=== PATIENT | female | born 1955 | race Caucasian/White ===

== ENCOUNTER 2022-11-15 10:02 | Inpatient (IN) | payer MEDICARE, OTHER ==
[2022-11-15] MEDS ORDERED: Sodium Chloride 0.9% 1000 ML 1,000 ML IV STA (10:16)
[2022-11-15] MEDS ORDERED: VANCOMYCIN 1 GRAM/200 ML BAG 1 GM/200 ML PIGGYBACK IV ONE ×2 (10:22→11:46)
[2022-11-15] MEDS ORDERED: ROCEPHIN 1 Gm-D5w 50 ml Bag** 1 G/50 ML IVPB IV STA (10:22)
[2022-11-15] MEDS ORDERED: Hydromorphone 1 mg/ml Injection IV ONE (10:32)
[2022-11-15] MEDS ORDERED: Zofran 4 MG/2 ML VIAL ONE (10:33)
[2022-11-15] MEDS ORDERED: Zofran 4 MG/2 ML VIAL IV ONE (10:33)
[2022-11-15] MEDS ORDERED: Hydromorphone 1 mg/ml Injection ONE (10:34)
[2022-11-15] MEDS ORDERED: Sodium Chloride 0.9% 1000 ML 1,000 ML ONE (10:36)
[2022-11-15] MEDS ORDERED: ROCEPHIN 1 Gm-D5w 50 ml Bag** 1 G/50 ML IVPB IV ONE (10:36)
[2022-11-15 10:50] LABS: Absolute Neutrophil Ct (ANC) 25.72 x10^3/uL (1.4-6.9); Eosinophil (Absolute #) 0.01 x10^3/uL (0-0.5); Hematocrit 32.4 % (35-47); Hemoglobin 11.3 g/dL (12.0-16.0); Lymphocyte (Absolute #) 1.99 x10^3/uL (1.0-4.6); Lymphocytes % 6.6 % (24.0-44.0); Mean Cell Volume 86.4 fL (78-100); Mean Corpuscular Hemoglobin 30.1 pg (26-32); Mean Corpuscular Hgb Concent. 34.9 g/dL (32-36); Mean Platelet Volume 10.6 fL (7.5-11.0); Monocyte (Absolute #) 1.82 x10^3/uL (0.0-1.3); Neutrophil % 85.4 % (36.0-66.0); Platelet Count 137 x10^3/uL (150-450); Red Blood Count 3.75 x10^6/uL (4.1-5.4); Red Cell Distribution Width 14.8 % (11.5-14.0)
[2022-11-15 10:51] LABS: White Blood Count 30.1 x10^3/uL (4.0-10.5)
[2022-11-15 10:57] LABS: ALBUMIN 3.8 g/dL (3.5-5.0); ALKALINE PHOSPHATASE 133 U/L (38-126); ANION GAP 15.6 MEQ/L (5-15); BLOOD UREA NITROGEN 25 mg/dL (7-17); CHLORIDE 85 mmol/L (98-107); Calcium 9.6 mg/dL (8.4-10.2); Carbon Dioxide 26 mmol/L (22-30); Creatinine 1 0.81 mg/dL (0.52-1.04); EST GLOMERULAR FILTRATION RATE > 60.0 ML/MIN; Glucose 433 mg/dL (74-106); Potassium 3.4 mmol/L (3.5-5.1); SGOT/AST 25 U/L (14-36); SGPT/ALT 35 U/L (0-35); SODIUM 124 mmol/L (137-145); Total Protein 7.5 g/dL (6.3-8.2)
[2022-11-15 11:19] LABS: INFLUENZA A NEGATIVE (NEGATIVE); INFLUENZA B NEGATIVE (NEGATIVE); RESPIRATORY SYNCTIAL VIRUS NEGATIVE (Negative); SARS-CoV-2 Xpert Express NEGATIVE (NEGATIVE)
[2022-11-15 11:23] LABS: Lymphocytes 10 % (24-44); Monocyte 5 % (0.0-12.0); Platelet Estimate DECREASED (NORMAL); Total Cells Counted 100
--- NOTE | 2022-11-15 11:32 | XRAY ---
Indication: Pain, swelling, and erythema. Two-dimensional sonogram and color Doppler imaging of the major venous vessels of the left upper extremity performed. Comparison: None No thrombus seen in the visualized left jugular, subclavian, axillary, basilic, brachial, cephalic, median cubital, radial, and ulnar veins. Veins demonstrate normal compressibility and normal venous waveforms. Impression: Left upper extremity negative for venous thrombosis.
--- NOTE | 2022-11-15 12:07 | ERPHSYRPT ---
- History of Present Illness Time Seen by Provider: 11/15/22 10:20 Source: patient Exam Limitations: no limitations Patient Subjective Stated Complaint: Pt states "I have had a double masectomy and they took allot of lymph nodes out of my left arm and on monday I started to have a sore throat and my left arm started to hurt and swell." Triage Nursing Assessment: Left arm swollen, hot, red and tender. PT alert and oriented X 3, skin pwd. Pt ambulates with an upright steady gait, able to speak in clear full sentences. Pt in no apaprent respiratory distress. Physician History: Patient is a 67-year-old white female who presents with a complaint of left arm pain. She reports that she had in 2013 a bilateral mastectomy with extensive node exploration on the left. Swelling is not terribly unusual. 4 days ago she noticed a sore throat and started with pain in her left upper extremity. Since then she has progressed to swelling heat and tenderness in the left upper extremity and areas of erythema on the posterior aspect of the upper arm. She is diabetic. Occurred: days ago (4) Quality: aching, burning, throbbing Severity of Pain-Max: severe Severity of Pain-Current: moderate Extremities Pain Location: arm: left, elbow: left, forearm: left, wrist: left, hand: left (Swelling tenderness and heat with some erythema in the posterior aspect of the upper arm) Allergies/Adverse Reactions: No Known Drug Allergies Allergy (Verified 11/15/22 10:18) Home Medications: Glimepiride 4 mg [Amaryl 4 mg] 4 mg PO DAILY 11/15/22 [History] Hydrochlorothiazide 25 mg [hydroDIURIL 25 MG] 25 mg PO DAILY 11/15/22 [History] Metformin HCl [Metformin ER Gastric] 1,000 mg PO DAILY 11/15/22 [History] Valsartan 160 mg PO DAILY 11/15/22 [History] Hx Tetanus, Diphtheria Vaccination/Date Given: No Hx Influenza Vaccination/Date Given: Yes Hx Pneumococcal Vaccination/Date Given: Yes Immunizations Up to Date: Yes Travel Risk - International Travel Have you traveled outside of the country in past 3 weeks: No - Coronavirus Screening Are you exhibiting any of the following symptoms?: No Close contact with a COVID-19 positive Pt in past 14-21 Days: No - Vaccine Status Have you recieved a Covid-19 vaccination: Yes Food [employer]: Moderna - Vaccination Dates Date of 2cond Vaccination (if applicable): 2020 - Review of Systems Constitutional: No Fever, No Chills Eyes: No Symptoms Ears, Nose, & Throat: No Symptoms Respiratory: No Cough, No Dyspnea Cardiac: No Chest Pain, No Edema, No Syncope Abdominal/Gastrointestinal: No Abdominal Pain, No Nausea, No Vomiting, No Diarrhea Genitourinary Symptoms: No Dysuria Musculoskeletal: Other (Left upper extremity is remarkable for edema the entire limb is hot to the touch there is erythema on the posterior aspect of the upper arm and movement is very painful.), No Back Pain, No Neck Pain Skin: No Rash Neurological: No Dizziness, No Focal Weakness, No Sensory Changes Psychological: No Symptoms Endocrine: No Symptoms All Other Systems: Reviewed and Negative - Past Medical History Pertinent Past Medical History: Yes Neurological History: No Pertinent History ENT History: No Pertinent History Cardiac History: Hypertension Respiratory History: No Pertinent History Endocrine Medical History: Diabetes Type II Musculoskeletal History: No Pertinent History GI Medical History: No Pertinent History History: No Pertinent History Psycho-Social History: No Pertinent History Female Reproductive Disorders: Breast Cancer - Past Surgical History Past Surgical History: Yes Other Surgical History: double masectomy. 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 - Social History Smoking Status: Never smoker Exposure to second hand smoke: No Drug Use: none Patient Lives Alone: No - Nursing Vital Signs Nursing Vital Signs: Initial Vital Signs Temperature 97.1 F 11/15/22 10:07 Pulse Rate 104 H 11/15/22 10:07 Respiratory Rate 20 11/15/22 10:07 Blood Pressure 152/70 11/15/22 10:07 O2 Sat by Pulse Oximetry 99 11/15/22 10:07 Pain Scale Pain Intensity 8 - Physical Exam General Appearance: moderate distress Eyes, Ears, Nose, Throat Exam: pharyngeal erythema Neck Exam: non-tender, supple Cardiovascular/Respiratory Exam: chest non-tender, normal breath sounds, regular rate/rhythm, no respiratory distress Abdominal Exam: non-tender, No guarding Back Exam: normal inspection, No vertebral tenderness Elbow/Forearm Exam: limited ROM, pain, soft tissue tenderness, swelling Skin Exam: rash (Erythematous rash posterior aspect of the left upper extremity) SpO2 Interpretation: normal SpO2: 97 O2 Delivery: Room Air - Course Nursing assessment & vital signs reviewed: Yes - Radiology Ultrasound Exam Left Venous Upper Extremity Ultrasound: Other (Ultrasound of the upper extremity showed no thrombus no discrete abscess only edema.) Ordered Tests: Active Orders 24 hr Category Date Time Status IV Insertion STAT Care 11/15/22 10:16 Active VENOUS UNILAT/LIMITED EXTREMIT [US] Stat Exams 11/15/22 10:20 Completed BLOOD CULTURE Stat Lab 11/15/22 10:35 Received CBC W DIFF Stat Lab 11/15/22 10:21 Results CMP Stat Lab 11/15/22 10:35 Completed Lactic Acid Stat Lab 11/15/22 10:35 Completed Manual Differential NC Stat Lab 11/15/22 10:21 Results Pathologist Review Stat Lab 11/15/22 10:21 Results SED RATE [Erythrocyte Sedimentation Rate] Stat Lab 11/15/22 10:21 Completed UA W/RFX CULTURE Stat Lab 11/15/22 Ordered Uric Acid Stat Lab 11/15/22 10:35 Completed Medication Summary Discontinued Medications Generic Name Dose Route Start Last Admin Trade Name Freq PRN Reason Stop Dose Admin Hydromorphone HCl 0.5 mg 11/15/22 10:32 11/15/22 10:35 Hydromorphone 1 Mg/1ml Inj 1 Mg/Ml Syringe IV 11/15/22 10:33 0.5 mg STAT ONE Administration Hydromorphone HCl Confirm 11/15/22 10:34 Hydromorphone 1 Mg/1ml Inj 1 Mg/Ml Syringe Administered 11/15/22 10:35 Dose 1 mg .ROUTE .STK-MED ONE Ceftriaxone Sodium/Dextrose 1 g in 50 mls @ 100 mls/hr 11/15/22 10:22 11:47 Rocephin 1 Gm-D5w 50 Ml Bag IV 11/15/22 10:51 Infused STAT STA Infusion Vancomycin HCl 1 gm in 200 mls @ 125 mls/hr 11/15/22 10:22 11/15/22 11:46 Vancomycin 1 Gram/200 Ml Bag IV 11/15/22 11:57 125 mls/hr STAT ONE 125 mls/hr Administration Sodium Chloride 1,000 mls @ 999 mls/hr 11/15/22 10:16 11/15/22 11:47 Sodium Chloride 0.9% 1000 Ml IV 11/15/22 11:16 Infused .Q1H1M STA Infusion Sodium Chloride Confirm 11/15/22 10:36 Sodium Chloride 0.9% 1000 Ml Administered 11/15/22 10:37 Dose 1,000 mls @ ud .ROUTE .K-MED ONE Ceftriaxone Sodium/Dextrose Confirm 11/15/22 10:36 Rocephin 1 Gm-D5w 50 Ml Bag Administered 11/15/22 10:37 Dose 1 g in 50 mls @ ud IV .STK-MED ONE Vancomycin HCl Confirm 11/15/22 11:46 Vancomycin 1 Gram/200 Ml Bag Administered 11/15/22 11:47 Dose 1 gm in 200 mls @ ud IV .STK-MED ONE Ondansetron HCl 4 mg 11/15/22 10:33 11/15/22 10:34 Ondansetron Hcl 4 Mg/2 Ml Vial IV 11/15/22 10:34 4 mg STAT ONE Administration Ondansetron HCl Confirm 11/15/22 10:33 Ondansetron Hcl 4 Mg/2 Ml Vial Administered 11/15/22 10:34 Dose 4 mg .ROUTE .[facility] ONE Lab/Rad Data: Laboratory Result Diagrams 11/15/22 10:21 11/15/22 10:35 Laboratory Results 11/15/22 11/15/22 11/15/22 Range/Units 10:39 10:39 10:35 WBC (4.0-10.5) x10^3/uL RBC (4.1-5.4) x10^6/uL Hgb (12.0-16.0) g/dL Hct (35-47) % MCV (78-100) fL MCH (26-32) pg MCHC (32-36) g/dL RDW (11.5-14.0) % Plt Count (150-450) x10^3/uL MPV (7.5-11.0) fL Gran % (36.0-66.0) % Immature Gran % (Auto) (0.00-0.4) % Nucleat RBC Rel Count (0.00-0.1) % Eos # (Auto) (0-0.5) x10^3/uL Immature Gran # (Auto) (0.00-0.03) x10^3u/L Absolute Lymphs (auto) (1.0-4.6) x10^3/uL Absolute Monos (auto) (0.0-1.3) x10^3/uL Absolute Nucleated RBC (0.00-0.01) x10^3u/L Lymphocytes % (24.0-44.0) % Monocytes % (0.0-12.0) % Eosinophils % (0.00-5.0) % Basophils % (0.0-0.4) % Absolute Granulocytes (1.4-6.9) x10^3/uL Segmented Neutrophils (36.0-66.0) % Lymphocytes (Manual) (24-44) % Monocytes (Manual) (0.0-12.0) % Basophils # (0-0.4) x10^3/uL Platelet Estimate (NORMAL) RBC Morphology Smear Path Review ESR (0-20) mm/hr Sodium (137-145) mmol/L Potassium (3.5-5.1) mmol/L Chloride (98-107) mmol/L Carbon Dioxide (22-30) mmol/L Anion Gap (5-15) MEQ/L BUN (7-17) mg/dL Creatinine (0.52-1.04) mg/dL Estimated GFR ML/MIN Glucose (74-106) mg/dL Lactic Acid (0.4-2.0) Uric Acid 7.0 H (2.6-6.0) mg/dL Calcium (8.4-10.2) mg/dL Total Bilirubin (0.2-1.3) mg/dL AST (14-36) U/L ALT (0-35) U/L Alkaline Phosphatase (38-126) U/L Serum Total Protein (6.3-8.2) g/dL Albumin (3.5-5.0) g/dL Influenza Type A Ag NEGATIVE (NEGATIVE) Influenza Type B Ag NEGATIVE (NEGATIVE) RSV (PCR) NEGATIVE (Negative) SARS-CoV-2 (PCR) NEGATIVE (NEGATIVE) Group A Strep Antibody DETECTED (NEGATIVE) 11/15/22 11/15/22 11/15/22 Range/Units 10:35 10:35 10:21 WBC (4.0-10.5) x10^3/uL RBC (4.1-5.4) x10^6/uL Hgb (12.0-16.0) g/dL Hct (35-47) % MCV (78-100) fL MCH (26-32) pg MCHC (32-36) g/dL RDW (11.5-14.0) % Plt Count (150-450) x10^3/uL MPV (7.5-11.0) fL Gran % (36.0-66.0) % Immature Gran % (Auto) (0.00-0.4) % Nucleat RBC Rel Count (0.00-0.1) % Eos # (Auto) (0-0.5) x10^3/uL Immature Gran # (Auto) (0.00-0.03) x10^3u/L Absolute Lymphs (auto) (1.0-4.6) x10^3/uL Absolute Monos (auto) (0.0-1.3) x10^3/uL Absolute Nucleated RBC (0.00-0.01) x10^3u/L Lymphocytes % (24.0-44.0) % Monocytes % (0.0-12.0) % Eosinophils % (0.00-5.0) % Basophils % (0.0-0.4) % Absolute Granulocytes (1.4-6.9) x10^3/uL Segmented Neutrophils (36.0-66.0) % Lymphocytes (Manual) (24-44) % Monocytes (Manual) (0.0-12.0) % Basophils # (0-0.4) x10^3/uL Platelet Estimate (NORMAL) RBC Morphology Smear Path Review ESR 76 H (0-20) mm/hr Sodium 124 L (137-145) mmol/L Potassium 3.4 L (3.5-5.1) mmol/L Chloride 85 L (98-107) mmol/L Carbon Dioxide 26 (22-30) mmol/L Anion Gap 15.6 H (5-15) MEQ/L BUN 25 H (7-17) mg/dL Creatinine 0.81 (0.52-1.04) mg/dL Estimated GFR > 60.0 ML/MIN Glucose 433 H (74-106) mg/dL Lactic Acid 2.5 H (0.4-2.0) Uric Acid (2.6-6.0) mg/dL Calcium 9.6 (8.4-10.2) mg/dL Total Bilirubin 2.00 H (0.2-1.3) mg/dL AST 25 (14-36) U/L ALT 35 (0-35) U/L Alkaline Phosphatase 133 H (38-126) U/L Serum Total Protein 7.5 (6.3-8.2) g/dL Albumin 3.8 (3.5-5.0) g/dL Influenza Type A Ag (NEGATIVE) Influenza Type B Ag (NEGATIVE) RSV (PCR) (Negative) SARS-CoV-2 (PCR) (NEGATIVE) Group A Strep Antibody (NEGATIVE) 11/15/22 Range/Units 10:21 WBC 30.1 H* (4.0-10.5) x10^3/uL RBC 3.75 L (4.1-5.4) x10^6/uL Hgb 11.3 L (12.0-16.0) g/dL Hct 32.4 L (35-47) % MCV 86.4 (78-100) fL MCH 30.1 (26-32) pg MCHC 34.9 (32-36) g/dL RDW 14.8 H (11.5-14.0) % Plt Count 137 L (150-450) x10^3/uL MPV 10.6 (7.5-11.0) fL Gran % 85.4 H (36.0-66.0) % Immature Gran % (Auto) 1.7 H (0.00-0.4) % Nucleat RBC Rel Count 0.0 (0.00-0.1) % Eos # (Auto) 0.01 (0-0.5) x10^3/uL Immature Gran # (Auto) 0.50 H (0.00-0.03) x10^3u/L Absolute Lymphs (auto) 1.99 (1.0-4.6) x10^3/uL Absolute Monos (auto) 1.82 H (0.0-1.3) x10^3/uL Absolute Nucleated RBC 0.00 (0.00-0.01) x10^3u/L Lymphocytes % 6.6 L (24.0-44.0) % Monocytes % 6.0 (0.0-12.0) % Eosinophils % 0.0 (0.00-5.0) % Basophils % 0.3 (0.0-0.4) % Absolute Granulocytes 25.72 H (1.4-6.9) x10^3/uL Segmented Neutrophils 85 H (36.0-66.0) % Lymphocytes (Manual) 10 L (24-44) % Monocytes (Manual) 5 (0.0-12.0) % Basophils # 0.10 (0-0.4) x10^3/uL Platelet Estimate DECREASED (NORMAL) RBC Morphology NORMAL Smear Path Review Pending ESR (0-20) mm/hr Sodium (137-145) mmol/L Potassium (3.5-5.1) mmol/L Chloride (98-107) mmol/L Carbon Dioxide (22-30) mmol/L Anion Gap (5-15) MEQ/L BUN (7-17) mg/dL Creatinine (0.52-1.04) mg/dL Estimated GFR ML/MIN Glucose (74-106) mg/dL Lactic Acid (0.4-2.0) Uric Acid (2.6-6.0) mg/dL Calcium (8.4-10.2) mg/dL Total Bilirubin (0.2-1.3) mg/dL AST (14-36) U/L ALT (0-35) U/L Alkaline Phosphatase (38-126) U/L Serum Total Protein (6.3-8.2) g/dL Albumin (3.5-5.0) g/dL Influenza Type A Ag (NEGATIVE) Influenza Type B Ag (NEGATIVE) RSV (PCR) (Negative) SARS-CoV-2 (PCR) (NEGATIVE) Group A Strep Antibody (NEGATIVE) - Progress Progress: unchanged Discussed with .: José Antonio Will see patient in: hospital (observation) - Departure Departure Disposition: Observation Clinical Impression: Strep pharyngitis, Cellulitis of left upper extremity Condition: Fair Critical Care Time: No Referrals: DAPHNE GUERRA [Primary Care Provider] - Follow up/PCP as directed
[2022-11-15] MEDS ORDERED: Sodium Chloride 0.9% 1000 ML 1,000 ML IV SCH (12:15)
[2022-11-15] MEDS ORDERED: VANCOCIN INJECTION*** 1 GM in Sodium Chloride 0.9% 250 ML 250 ML IV SCH (12:30)
[2022-11-15] MEDS: HUMALOG SQ PRN ×3 (13:23→21:51)
[2022-11-15] MEDS ORDERED: Zofran 4 MG/2 ML VIAL IV PRN (13:50)
[2022-11-15] MEDS: Sodium Chloride 0.9% W/ 20 mEq KCl/LITER 1,000 ML IV SCH (14:21)
[2022-11-15] MEDS: Hydromorphone 1 mg/ml Injection IV PRN (14:21)
[2022-11-15] MEDS: PERCOCET TABLET 5/325MG PO PRN ×2 (15:48→21:19)
[2022-11-15] MEDS: DIOVAN 80 MG PO SCH (21:19)
[2022-11-15] MEDS: VANCOMYCIN 1 GRAM/200 ML BAG 1 GM/200 ML PIGGYBACK IV SCH (21:27)
[2022-11-15 23:00] LABS: Mucus SLIGHT /HPF (NEGATIVE)
[2022-11-15 23:01] LABS: Appearance CLEAR (CLEAR); Bilirubin NEGATIVE (NEGATIVE); Dipstick done @ ? MAIN LAB; Glucose 250 mg/dL (NEGATIVE); Ketones NEGATIVE (NEGATIVE); Nitrite NEGATIVE (NEGATIVE); Protein,Urine Dip 100 (Negative); RBC TRACE-INTACT Ery/ul (0-5); Specific Gravity 1.015 (1.005-1.025); Urine Cultured Indicated? YES; Urobilinogen 0.2 mg/dL (0-1)
[2022-11-16] MEDS: Sodium Chloride 0.9% W/ 20 mEq KCl/LITER 1,000 ML IV SCH ×3 (00:43→22:13)
[2022-11-16 05:35] LABS: Absolute Neutrophil Ct (ANC) 20.11 x10^3/uL (1.4-6.9); Basophil (Absolute #) 0.05 x10^3/uL (0-0.4); Eosinophil % 0.1 % (0.00-5.0); Eosinophil (Absolute #) 0.03 x10^3/uL (0-0.5); Hematocrit 27.6 % (35-47); Hemoglobin 9.7 g/dL (12.0-16.0); Lymphocyte (Absolute #) 1.81 x10^3/uL (1.0-4.6); Lymphocytes % 7.6 % (24.0-44.0); Mean Cell Volume 86.8 fL (78-100); Mean Corpuscular Hemoglobin 30.5 pg (26-32); Mean Corpuscular Hgb Concent. 35.1 g/dL (32-36); Mean Platelet Volume 10.9 fL (7.5-11.0); Monocyte (Absolute #) 1.22 x10^3/uL (0.0-1.3); Monocytes % 5.1 % (0.0-12.0); Neutrophil % 84.8 % (36.0-66.0); Platelet Count 126 x10^3/uL (150-450); Red Blood Count 3.18 x10^6/uL (4.1-5.4); Red Cell Distribution Width 14.9 % (11.5-14.0); White Blood Count 23.7 x10^3/uL (4.0-10.5)
[2022-11-16 06:42] LABS: ALBUMIN 2.6 g/dL (3.5-5.0); ALKALINE PHOSPHATASE 97 U/L (38-126); ANION GAP 11.5 MEQ/L (5-15); BLOOD UREA NITROGEN 23 mg/dL (7-17); CHLORIDE 95 mmol/L (98-107); Calcium 8.3 mg/dL (8.4-10.2); Carbon Dioxide 25 mmol/L (22-30); Creatinine 1 0.75 mg/dL (0.52-1.04); EST GLOMERULAR FILTRATION RATE > 60.0 ML/MIN; Glucose 251 mg/dL (74-106); Potassium 3.5 mmol/L (3.5-5.1); SGOT/AST 23 U/L (14-36); SGPT/ALT 26 U/L (0-35); SODIUM 128 mmol/L (137-145); Total Protein 5.5 g/dL (6.3-8.2)
[2022-11-16] MEDS: HUMALOG SQ PRN ×4 (07:47→22:14)
[2022-11-16] MEDS: Hydromorphone 1 mg/ml Injection IV PRN (07:52)
[2022-11-16] MEDS: PERCOCET TABLET 5/325MG PO PRN (09:56)
[2022-11-16] MEDS: hydroDIURIL 25 MG PO SCH (09:56)
[2022-11-16] MEDS: ROCEPHIN 1 Gm-D5w 50 ml Bag** 1 G/50 ML IVPB IV SCH (09:56)
[2022-11-16] MEDS: VANCOMYCIN 1 GRAM/200 ML BAG 1 GM/200 ML PIGGYBACK IV SCH (10:26)
--- NOTE | 2022-11-16 11:44 | PCM.HP ---
History of Present Illness - Chief Complaint Chief Complaint: CELLULITIS LUE, STREP PHARYNGITIS History of Present Illness: is a 67 year old female pt of [facility] in [place] with hx DM II who was admitted through ER with Strep pharyngitis and cellulitis LUE. WBC 30,000. She started having sore throat 4d ago, took 2 asa and went to bed. Had some stomach pain. Throat pain localized on the R, then resolved. She started having arm pain 4d ago as well and woke the next day to find it swollen. Denies fever. Has had vomiting and diarrhea with it. WBC down to 23,000 this morning and she said the arm feels somewhat better. - Review of Systems Abdominal/Gastrointestinal: Abdominal Pain, Vomiting, Diarrhea, Melena (c/o black stools, "I eat a lot of dark chocolate." never had EGD/colonoscopy. Has cologard but hasn't done it.) Musculoskeletal: Arthralgias Skin: Cellulitis All Other Systems: Reviewed and Negative Medications & Allergies Home Medications: Home Medication List Glimepiride 4 mg [Amaryl 4 mg] 4 mg PO DAILY 11/15/22 [History Confirmed 11/15/22] Hydrochlorothiazide 25 mg [hydroDIURIL 25 MG] 25 mg PO DAILY 11/15/22 [History Confirmed 11/15/22] Metformin HCl [Metformin ER Gastric] 1,000 mg PO BID 11/15/22 [History Confirmed 11/15/22] Valsartan 160 mg PO HS 11/15/22 [History Confirmed 11/15/22] Allergies/Adverse Reactions: Allergies Allergy/AdvReac Type Severity Reaction Status Date / Time No Known Drug Allergies Allergy Verified 11/15/22 10:18 - Past Medical History Past Medical History: Yes Neurological History: No Pertinent History ENT History: No Pertinent History Cardiac History: Hypertension Respiratory History: No Pertinent History Endocrine Medical History: Diabetes Type II Musculoskelatal History: No Pertinent History GI Medical History: No Pertinent History History: No Pertinent History Pyscho-Social History: No Pertinent History Reproductive Disorders: Breast Cancer - Past Surgical History Past Surgical History: Yes Neuro Surgical History: No Pertinent History Cardiac History: No Pertinent History Respiratory Surgery: No Pertinent History GI Surgical History: No Pertinent History Genitourinary Surgical Hx: No Pertinent History Musculskeletal Surgical Hx: No Pertinent History Female Surgical History: No Pertinent History Other Surgical History: double masectomy. 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 - Social History Smoking Status: Never smoker Exposure to second hand smoke: No Alcohol: None Drug Use: none - Physical Exam Vital Signs: Vital Signs - 24 hr Temp Pulse Resp BP Pulse Ox 11/16/22 07:39 96.9 F 93 H 17 127/59 92 L 11/16/22 04:00 97.9 F 76 18 130/61 94 L 11/15/22 23:49 97.2 F 93 H 18 108/54 93 L 11/15/22 20:00 97.5 F 88 18 113/55 93 L 11/15/22 16:00 97.7 F 96 H 14 103/51 94 L 11/15/22 13:04 97.1 F 90 16 151/65 97 11/15/22 12:12 97 11/15/22 12:06 89 20 139/58 98 11/15/22 11:50 90 20 147/58 97 General Appearance: mild distress (when moving the arm), alert Neurologic Exam: oriented x 3, cooperative Eye Exam: eyes nml inspection Ears, Nose, Throat Exam: moist mucous membranes Neck Exam: normal inspection Respiratory Exam: normal breath sounds, lungs clear, No crackles/rales, No rhonchi, No wheezing Cardiovascular Exam: regular rate/rhythm, normal heart sounds, No murmur Gastrointestinal/Abdomen Exam: soft, normal bowel sounds, No tenderness, No distention, No mass, No guarding, No rebound Extremity Exam: other (LUE edema mid-humerus to distal forearm, with moderate erythema and marked edema. tender to palp, but not exquisitely so.) Results - Labs Lab/Micro Results: Lab Results-Last 24 Hours 11/15/22 11/15/22 11/15/22 Range/Units 05:20 10:21 13:02 WBC (4.0-10.5) x10^3/uL RBC (4.1-5.4) x10^6/uL Hgb (12.0-16.0) g/dL Hct (35-47) % MCV (78-100) fL MCH (26-32) pg MCHC (32-36) g/dL RDW (11.5-14.0) % Plt Count (150-450) x10^3/uL MPV (7.5-11.0) fL Gran % (36.0-66.0) % Immature Gran % (Auto) (0.00-0.4) % Nucleat RBC Rel Count (0.00-0.1) % Eos # (Auto) (0-0.5) x10^3/uL Immature Gran # (Auto) (0.00-0.03) x10^3u/L Absolute Lymphs (auto) (1.0-4.6) x10^3/uL Absolute Monos (auto) (0.0-1.3) x10^3/uL Absolute Nucleated RBC (0.00-0.01) x10^3u/L Lymphocytes % (24.0-44.0) % Monocytes % (0.0-12.0) % Eosinophils % (0.00-5.0) % Basophils % (0.0-0.4) % Absolute Granulocytes (1.4-6.9) x10^3/uL Basophils # (0-0.4) x10^3/uL Smear Path Review Sodium (137-145) mmol/L Potassium (3.5-5.1) mmol/L Chloride (98-107) mmol/L Carbon Dioxide (22-30) mmol/L Anion Gap (5-15) MEQ/L BUN (7-17) mg/dL Creatinine (0.52-1.04) mg/dL Estimated GFR ML/MIN Glucose (74-106) mg/dL POC Glucometer 366 H (74 to 106) mg/dL Hemoglobin A1c 10.22 H (4.5-6.0) % Lactic Acid (0.4-2.0) Calcium (8.4-10.2) mg/dL Total Bilirubin (0.2-1.3) mg/dL AST (14-36) U/L ALT (0-35) U/L Alkaline Phosphatase (38-126) U/L Serum Total Protein (6.3-8.2) g/dL Albumin (3.5-5.0) g/dL Urinalys Dipstick Clnc Urine Color (YELLOW) Urine Appearance (CLEAR) Urine pH (5-6) Ur Specific Channing (1.005-1.025) POC Urine Protein Conf (Negative) Urine Ketones (NEGATIVE) Urine Nitrite (NEGATIVE) Urine Bilirubin (NEGATIVE) Urine Urobilinogen (0-1) mg/dL Urine Leukocytes (NEGATIVE) Urine WBC (Auto) (0-5) /HPF Urine RBC (Auto) (0-2) /HPF U Epithel Cells (Auto) (FEW) /HPF Urine Bacteria (Auto) (NEGATIVE) /HPF Urine RBC (0-5) Jerman/ul Urine Mucus (Auto) (NEGATIVE) /HPF Ur Culture Indicated? Urine Glucose (NEGATIVE) mg/dL Slides for Path Review 11/15/22 11/15/22 11/15/22 Range/Units 16:27 21:37 22:39 WBC (4.0-10.5) x10^3/uL RBC (4.1-5.4) x10^6/uL Hgb (12.0-16.0) g/dL Hct (35-47) % MCV (78-100) fL MCH (26-32) pg MCHC (32-36) g/dL RDW (11.5-14.0) % Plt Count (150-450) x10^3/uL MPV (7.5-11.0) fL Gran % (36.0-66.0) % Immature Gran % (Auto) (0.00-0.4) % Nucleat RBC Rel Count (0.00-0.1) % Eos # (Auto) (0-0.5) x10^3/uL Immature Gran # (Auto) (0.00-0.03) x10^3u/L Absolute Lymphs (auto) (1.0-4.6) x10^3/uL Absolute Monos (auto) (0.0-1.3) x10^3/uL Absolute Nucleated RBC (0.00-0.01) x10^3u/L Lymphocytes % (24.0-44.0) % Monocytes % (0.0-12.0) % Eosinophils % (0.00-5.0) % Basophils % (0.0-0.4) % Absolute Granulocytes (1.4-6.9) x10^3/uL Basophils # (0-0.4) x10^3/uL Smear Path Review Sodium (137-145) mmol/L Potassium (3.5-5.1) mmol/L Chloride (98-107) mmol/L Carbon Dioxide (22-30) mmol/L Anion Gap (5-15) MEQ/L BUN (7-17) mg/dL Creatinine (0.52-1.04) mg/dL Estimated GFR ML/MIN Glucose (74-106) mg/dL POC Glucometer 261 H 270 H (74 to 106) mg/dL Hemoglobin A1c (4.5-6.0) % Lactic Acid (0.4-2.0) Calcium (8.4-10.2) mg/dL Total Bilirubin (0.2-1.3) mg/dL AST (14-36) U/L ALT (0-35) U/L Alkaline Phosphatase (38-126) U/L Serum Total Protein (6.3-8.2) g/dL Albumin (3.5-5.0) g/dL Urinalys Dipstick Clnc MAIN LAB Urine Color YELLOW (YELLOW) Urine Appearance CLEAR (CLEAR) Urine pH 5.0 (5-6) Ur Specific Channing 1.015 (1.005-1.025) POC Urine Protein Conf 100 A (Negative) Urine Ketones NEGATIVE (NEGATIVE) Urine Nitrite NEGATIVE (NEGATIVE) Urine Bilirubin NEGATIVE (NEGATIVE) Urine Urobilinogen 0.2 (0-1) mg/dL Urine Leukocytes TRACE A (NEGATIVE) Urine WBC (Auto) 16-25 A (0-5) /HPF Urine RBC (Auto) 3-5 A (0-2) /HPF U Epithel Cells (Auto) NONE (FEW) /HPF Urine Bacteria (Auto) NONE (NEGATIVE) /HPF Urine RBC TRACE-INTACT A (0-5) Jerman/ul Urine Mucus (Auto) SLIGHT A (NEGATIVE) /HPF Ur Culture Indicated? YES Urine Glucose 250 A (NEGATIVE) mg/dL Slides for Path Review 11/16/22 11/16/22 11/16/22 Range/Units 05:05 05:05 05:18 WBC 23.7 H (4.0-10.5) x10^3/uL RBC 3.18 L (4.1-5.4) x10^6/uL Hgb 9.7 L (12.0-16.0) g/dL Hct 27.6 L (35-47) % MCV 86.8 (78-100) fL MCH 30.5 (26-32) pg MCHC 35.1 (32-36) g/dL RDW 14.9 H (11.5-14.0) % Plt Count 126 L (150-450) x10^3/uL MPV 10.9 (7.5-11.0) fL Gran % 84.8 H (36.0-66.0) % Immature Gran % (Auto) 2.2 H (0.00-0.4) % Nucleat RBC Rel Count 0.0 (0.00-0.1) % Eos # (Auto) 0.03 (0-0.5) x10^3/uL Immature Gran # (Auto) 0.52 H (0.00-0.03) x10^3u/L Absolute Lymphs (auto) 1.81 (1.0-4.6) x10^3/uL Absolute Monos (auto) 1.22 (0.0-1.3) x10^3/uL Absolute Nucleated RBC 0.00 (0.00-0.01) x10^3u/L Lymphocytes % 7.6 L (24.0-44.0) % Monocytes % 5.1 (0.0-12.0) % Eosinophils % 0.1 (0.00-5.0) % Basophils % 0.2 (0.0-0.4) % Absolute Granulocytes 20.11 H (1.4-6.9) x10^3/uL Basophils # 0.05 (0-0.4) x10^3/uL Smear Path Review Sodium 128 L (137-145) mmol/L Potassium 3.5 (3.5-5.1) mmol/L Chloride 95 L (98-107) mmol/L Carbon Dioxide 25 (22-30) mmol/L Anion Gap 11.5 (5-15) MEQ/L BUN 23 H (7-17) mg/dL Creatinine 0.75 (0.52-1.04) mg/dL Estimated GFR > 60.0 ML/MIN Glucose 251 H (74-106) mg/dL POC Glucometer (74 to 106) mg/dL Hemoglobin A1c (4.5-6.0) % Lactic Acid 1.0 (0.4-2.0) Calcium 8.3 L (8.4-10.2) mg/dL Total Bilirubin 1.00 (0.2-1.3) mg/dL AST 23 (14-36) U/L ALT 26 (0-35) U/L Alkaline Phosphatase 97 (38-126) U/L Serum Total Protein 5.5 L (6.3-8.2) g/dL Albumin 2.6 L (3.5-5.0) g/dL Urinalys Dipstick Clnc Urine Color (YELLOW) Urine Appearance (CLEAR) Urine pH (5-6) Ur Specific Channing (1.005-1.025) POC Urine Protein Conf (Negative) Urine Ketones (NEGATIVE) Urine Nitrite (NEGATIVE) Urine Bilirubin (NEGATIVE) Urine Urobilinogen (0-1) mg/dL Urine Leukocytes (NEGATIVE) Urine WBC (Auto) (0-5) /HPF Urine RBC (Auto) (0-2) /HPF U Epithel Cells (Auto) (FEW) /HPF Urine Bacteria (Auto) (NEGATIVE) /HPF Urine RBC (0-5) Jerman/ul Urine Mucus (Auto) (NEGATIVE) /HPF Ur Culture Indicated? Urine Glucose (NEGATIVE) mg/dL Slides for Path Review ' 11/16/22 Range/Units 07:27 WBC (4.0-10.5) x10^3/uL RBC (4.1-5.4) x10^6/uL Hgb (12.0-16.0) g/dL Hct (35-47) % MCV (78-100) fL MCH (26-32) pg MCHC (32-36) g/dL RDW (11.5-14.0) % Plt Count (150-450) x10^3/uL MPV (7.5-11.0) fL Gran % (36.0-66.0) % Immature Gran % (Auto) (0.00-0.4) % Nucleat RBC Rel Count (0.00-0.1) % Eos # (Auto) (0-0.5) x10^3/uL Immature Gran # (Auto) (0.00-0.03) x10^3u/L Absolute Lymphs (auto) (1.0-4.6) x10^3/uL Absolute Monos (auto) (0.0-1.3) x10^3/uL Absolute Nucleated RBC (0.00-0.01) x10^3u/L Lymphocytes % (24.0-44.0) % Monocytes % (0.0-12.0) % Eosinophils % (0.00-5.0) % Basophils % (0.0-0.4) % Absolute Granulocytes (1.4-6.9) x10^3/uL Basophils # (0-0.4) x10^3/uL Smear Path Review Sodium (137-145) mmol/L Potassium (3.5-5.1) mmol/L Chloride (98-107) mmol/L Carbon Dioxide (22-30) mmol/L Anion Gap (5-15) MEQ/L BUN (7-17) mg/dL Creatinine (0.52-1.04) mg/dL Estimated GFR ML/MIN Glucose (74-106) mg/dL POC Glucometer 281 H (74 to 106) mg/dL Hemoglobin A1c (4.5-6.0) % Lactic Acid (0.4-2.0) Calcium (8.4-10.2) mg/dL Total Bilirubin (0.2-1.3) mg/dL AST (14-36) U/L ALT (0-35) U/L Alkaline Phosphatase (38-126) U/L Serum Total Protein (6.3-8.2) g/dL Albumin (3.5-5.0) g/dL Urinalys Dipstick Clnc Urine Color (YELLOW) Urine Appearance (CLEAR) Urine pH (5-6) Ur Specific Channing (1.005-1.025) POC Urine Protein Conf (Negative) Urine Ketones (NEGATIVE) Urine Nitrite (NEGATIVE) Urine Bilirubin (NEGATIVE) Urine Urobilinogen (0-1) mg/dL Urine Leukocytes (NEGATIVE) Urine WBC (Auto) (0-5) /HPF Urine RBC (Auto) (0-2) /HPF U Epithel Cells (Auto) (FEW) /HPF Urine Bacteria (Auto) (NEGATIVE) /HPF Urine RBC (0-5) Jerman/ul Urine Mucus (Auto) (NEGATIVE) /HPF Ur Culture Indicated? Urine Glucose (NEGATIVE) mg/dL Slides for Path Review Accuchecks Date 11/16/22 Date 11/15/22 Time 07:28 Time 16:48 - Radiology Impressions Radiology Exams & Impressions: Radiology Procedures Category Date Time Status VENOUS UNILAT/LIMITED EXTREMIT [US] Stat Exams 11/15/22 10:20 Completed Assessment/Plan (1) Cellulitis of left upper extremity Current Visit: Yes Status: Acute Assessment & Plan: on vancomycin and rocephin day #2 with some improvement. Will likely take several days of IV antibiotics to improve to the point that she can go home on Po antibiotics. Code(s): L03.114 - CELLULITIS OF LEFT UPPER LIMB (2) Strep pharyngitis Current Visit: Yes Status: Acute Code(s): J02.0 - STREPTOCOCCAL PHARYNGITIS (3) Diabetes type 2, uncontrolled Current Visit: Yes Status: Chronic Qualifiers: Glycemic state: with hyperglycemia Qualified Code(s): E11.65 - Type 2 diabetes mellitus with hyperglycemia Assessment & Plan: start 10 units lantus Code(s): [id number] - (4) Anemia Current Visit: Yes Status: Chronic Qualifiers: Anemia type: unspecified type Qualified Code(s): D64.9 - Anemia, unspecified Assessment & Plan: checking iron studeis and fecal occult blood, particularly in light of report of melena and hx breast ca. Code(s): D64.9 - ANEMIA, UNSPECIFIED (5) Melena Current Visit: Yes Status: Suspected Code(s): K92.1 - MELENA (6) History of breast cancer Current Visit: Yes Status: Acute Code(s): Z85.3 - PERSONAL HISTORY OF MALIGNANT NEOPLASM OF BREAST
[2022-11-16] MEDS: Lantus Insulin SQ SCH (12:39)
[2022-11-16 13:04] LABS: Iron 13 ug/dL (37-170); Iron Saturation 6 % (20-39); TIBC 201 ug/dL (265-462)
[2022-11-16 14:04] LABS: Folate (Folic Acid) 13.1 ng/mL (2.76 - >20)
[2022-11-16 14:11] LABS: Vitamin B12 > 1000 pg/mL (239-931)
[2022-11-16] MEDS: DIOVAN 80 MG PO SCH (22:13)
[2022-11-16] MEDS: VANCOCIN INJECTION*** 0.75 GM in Sodium Chloride 0.9% 250 ML 250 ML IV SCH (22:13)
[2022-11-17] MEDS: HUMALOG SQ PRN ×4 (08:12→22:08)
[2022-11-17] MEDS: Lantus Insulin SQ SCH (08:12)
[2022-11-17 08:30] LABS: Absolute Neutrophil Ct (ANC) 12.88 x10^3/uL (1.4-6.9); Basophil (Absolute #) 0.04 x10^3/uL (0-0.4); Eosinophil (Absolute #) 0.16 x10^3/uL (0-0.5); Hemoglobin 10.5 g/dL (12.0-16.0); Lymphocyte (Absolute #) 1.71 x10^3/uL (1.0-4.6); Lymphocytes % 10.8 % (24.0-44.0); Mean Cell Volume 88.6 fL (78-100); Mean Corpuscular Hgb Concent. 33.9 g/dL (32-36); Mean Platelet Volume 10.6 fL (7.5-11.0); Monocytes % 3.8 % (0.0-12.0); Neutrophil % 81.1 % (36.0-66.0); Platelet Count 133 x10^3/uL (150-450); White Blood Count 15.9 x10^3/uL (4.0-10.5)
[2022-11-17 08:59] LABS: ANION GAP 13.1 MEQ/L (5-15); BLOOD UREA NITROGEN 14 mg/dL (7-17); CHLORIDE 98 mmol/L (98-107); Calcium 8.9 mg/dL (8.4-10.2); Carbon Dioxide 27 mmol/L (22-30); Creatinine 1 0.56 mg/dL (0.52-1.04); EST GLOMERULAR FILTRATION RATE > 60.0 ML/MIN; Glucose 300 mg/dL (74-106); Potassium 3.8 mmol/L (3.5-5.1); SODIUM 134 mmol/L (137-145)
[2022-11-17] MEDS ORDERED: TROUGH DRUG LEVELS IJ ONE (09:30)
--- NOTE | 2022-11-17 09:38 | XRAY ---
Indication: Bibasilar crackles. Comparison: None Portable chest demonstrates subtle left base infiltrate/atelectasis and tiny bibasilar effusions. Heart not enlarged. Bony thorax intact with osteopenia, bilateral mastectomy, and left axilla sandhya dissection.
[2022-11-17] MEDS: ROCEPHIN 1 Gm-D5w 50 ml Bag** 1 G/50 ML IVPB IV SCH (09:45)
[2022-11-17] MEDS: Sodium Chloride 0.9% W/ 20 mEq KCl/LITER 1,000 ML IV SCH ×2 (09:45→20:57)
[2022-11-17] MEDS: hydroDIURIL 25 MG PO SCH (09:46)
--- NOTE | 2022-11-17 12:57 | PCM.NOTE ---
Date and Time: 11/17/22 1253 Subjective Assessment: Tolerating po. Still having pain in arm, 5/10 now, was 10/10 at admission. - Review of Systems Constitutional: No Fever Respiratory: Cough Skin: Cellulitis Objective Exam General Appearance: mild distress (holding the L arm carefully), alert Neurologic Exam: oriented x 3, cooperative Skin Exam: other (LUE with edema particularly medial area of forearm. mild erythema forearma nd distal 1/2 of humerus. TTP) Wound Assessment: Skin/Wound Assessment Wound/Incision Assessment Start: 11/17/22 02:16 Text: Status: Active Freq: Q6H Protocol: Document 11/17/22 08:00 EK (Rec: 11/17/22 09:15 EK [id number]) Wound/Incision Assessment Left Upper Arm Wound Assessment Shift Assessment Wound Type cellulitis Wound Stage Non Pressure Wound Drainage Amount None Surrounding Tissue Bright Red Eye Exam: eyes nml inspection Ears, Nose, Throat Exam: moist mucous membranes Neck Exam: normal inspection Respiratory Exam: normal breath sounds, crackles/rales (bilat bases), No rhonchi, No wheezing Cardiovascular Exam: regular rate/rhythm, normal heart sounds, No murmur Gastrointestinal/Abdomen Exam: soft, normal bowel sounds, No tenderness, No distention, No mass, No guarding, No rebound Extremity Exam: other (see skin exam) Back Exam: normal inspection, No rash OBJECTIVE DATA Vital Signs: Vital Signs - 24 hr Temp Pulse Resp BP Pulse Ox 11/17/22 11:36 96.6 F 81 16 131/70 94 L 11/17/22 08:00 95.9 F 88 16 136/62 92 L 11/17/22 04:00 97.4 F 84 18 135/60 96 11/16/22 23:33 97.5 F 86 18 130/63 96 11/16/22 19:55 97.1 F 95 H 18 132/60 95 11/16/22 16:00 97.6 F 81 16 129/58 92 L Pain Assessment - Last Documented Pain Intensity 2 Pain Scale Used 0-10 Pain Scale Intake and Output: Intake & Output 11/15/22 11/16/22 11/17/22 11/18/22 11:59 11:59 11:59 11:59 Intake Total 3485 4220 Output Total 3800 Balance 3485 420 Weight 62.6 kg 62.1 kg Lab Results: Lab Results-Last 24 Hours 11/16/22 11/16/22 11/16/22 Range/Units 12:30 12:30 12:30 WBC (4.0-10.5) x10^3/uL RBC (4.1-5.4) x10^6/uL Hgb (12.0-16.0) g/dL Hct (35-47) % MCV (78-100) fL MCH (26-32) pg MCHC (32-36) g/dL RDW (11.5-14.0) % Plt Count (150-450) x10^3/uL MPV (7.5-11.0) fL Gran % (36.0-66.0) % Immature Gran % (Auto) (0.00-0.4) % Nucleat RBC Rel Count (0.00-0.1) % Eos # (Auto) (0-0.5) x10^3/uL Immature Gran # (Auto) (0.00-0.03) x10^3u/L Absolute Lymphs (auto) (1.0-4.6) x10^3/uL Absolute Monos (auto) (0.0-1.3) x10^3/uL Absolute Nucleated RBC (0.00-0.01) x10^3u/L Lymphocytes % (24.0-44.0) % Monocytes % (0.0-12.0) % Eosinophils % (0.00-5.0) % Basophils % (0.0-0.4) % Absolute Granulocytes (1.4-6.9) x10^3/uL Basophils # (0-0.4) x10^3/uL Sodium (137-145) mmol/L Potassium (3.5-5.1) mmol/L Chloride (98-107) mmol/L Carbon Dioxide (22-30) mmol/L Anion Gap (5-15) MEQ/L BUN (7-17) mg/dL Creatinine (0.52-1.04) mg/dL Estimated GFR ML/MIN Glucose (74-106) mg/dL POC Glucometer (74 to 106) mg/dL Calcium (8.4-10.2) mg/dL Iron 13 L (37-170) ug/dL TIBC 201 L (265-462) ug/dL Iron Saturation 6 L (20-39) % Ferritin 177 (11.1-264) ng/mL Vitamin B12 > 1000 H (239-931) pg/mL Folic Acid 13.1 (2.76 - >20) ng/mL 11/16/22 11/16/22 11/17/22 Range/Units 16:08 21:45 07:17 WBC (4.0-10.5) x10^3/uL RBC (4.1-5.4) x10^6/uL Hgb (12.0-16.0) g/dL Hct (35-47) % MCV (78-100) fL MCH (26-32) pg MCHC (32-36) g/dL RDW (11.5-14.0) % Plt Count (150-450) x10^3/uL MPV (7.5-11.0) fL Gran % (36.0-66.0) % Immature Gran % (Auto) (0.00-0.4) % Nucleat RBC Rel Count (0.00-0.1) % Eos # (Auto) (0-0.5) x10^3/uL Immature Gran # (Auto) (0.00-0.03) x10^3u/L Absolute Lymphs (auto) (1.0-4.6) x10^3/uL Absolute Monos (auto) (0.0-1.3) x10^3/uL Absolute Nucleated RBC (0.00-0.01) x10^3u/L Lymphocytes % (24.0-44.0) % Monocytes % (0.0-12.0) % Eosinophils % (0.00-5.0) % Basophils % (0.0-0.4) % Absolute Granulocytes (1.4-6.9) x10^3/uL Basophils # (0-0.4) x10^3/uL Sodium (137-145) mmol/L Potassium (3.5-5.1) mmol/L Chloride (98-107) mmol/L Carbon Dioxide (22-30) mmol/L Anion Gap (5-15) MEQ/L BUN (7-17) mg/dL Creatinine (0.52-1.04) mg/dL Estimated GFR ML/MIN Glucose (74-106) mg/dL POC Glucometer 264 H 301 H 284 H (74 to 106) mg/dL Calcium (8.4-10.2) mg/dL Iron (37-170) ug/dL TIBC (265-462) ug/dL Iron Saturation (20-39) % Ferritin (11.1-264) ng/mL Vitamin B12 (239-931) pg/mL Folic Acid (2.76 - >20) ng/mL 11/17/22 11/17/22 11/17/22 Range/Units 08:22 08:22 11:29 WBC 15.9 H (4.0-10.5) x10^3/uL RBC 3.50 L (4.1-5.4) x10^6/uL Hgb 10.5 L (12.0-16.0) g/dL Hct 31.0 L (35-47) % MCV 88.6 (78-100) fL MCH 30.0 (26-32) pg MCHC 33.9 (32-36) g/dL RDW 15.0 H (11.5-14.0) % Plt Count 133 L (150-450) x10^3/uL MPV 10.6 (7.5-11.0) fL Gran % 81.1 H (36.0-66.0) % Immature Gran % (Auto) 3.0 H (0.00-0.4) % Nucleat RBC Rel Count 0.0 (0.00-0.1) % Eos # (Auto) 0.16 (0-0.5) x10^3/uL Immature Gran # (Auto) 0.47 H (0.00-0.03) x10^3u/L Absolute Lymphs (auto) 1.71 (1.0-4.6) x10^3/uL Absolute Monos (auto) 0.60 (0.0-1.3) x10^3/uL Absolute Nucleated RBC 0.00 (0.00-0.01) x10^3u/L Lymphocytes % 10.8 L (24.0-44.0) % Monocytes % 3.8 (0.0-12.0) % Eosinophils % 1.0 (0.00-5.0) % Basophils % 0.3 (0.0-0.4) % Absolute Granulocytes 12.88 H (1.4-6.9) x10^3/uL Basophils # 0.04 (0-0.4) x10^3/uL Sodium 134 L (137-145) mmol/L Potassium 3.8 (3.5-5.1) mmol/L Chloride 98 (98-107) mmol/L Carbon Dioxide 27 (22-30) mmol/L Anion Gap 13.1 (5-15) MEQ/L BUN 14 (7-17) mg/dL Creatinine 0.56 (0.52-1.04) mg/dL Estimated GFR > 60.0 ML/MIN Glucose 300 H (74-106) mg/dL POC Glucometer 322 H (74 to 106) mg/dL Calcium 8.9 (8.4-10.2) mg/dL Iron (37-170) ug/dL TIBC (265-462) ug/dL Iron Saturation (20-39) % Ferritin (11.1-264) ng/mL Vitamin B12 (239-931) pg/mL Folic Acid (2.76 - >20) ng/mL Radiology Exams: Radiology Procedures Category Date Time Status CHEST 1 VIEW (PORTABLE) Urgent Exams 11/17/22 08:53 Completed Multi-Disciplinary Progress Notes: Multi-Disciplinary Progress Notes 11/17/22 10:20 Case Management Note by Mamta Maldonado NO CHANGE IN DC PLANS AT THIS TIME Initialized on 11/17/22 10:20 - END OF NOTE Assessment/Plan (1) Cellulitis of left upper extremity Current Visit: Yes Status: Acute Assessment & Plan: No large improvement. Changing antibiotics as below. Code(s): L03.114 - CELLULITIS OF LEFT UPPER LIMB (2) Bilateral pneumonia Current Visit: Yes Status: Acute Qualifiers: Pneumonia type: due to unspecified organism Assessment & Plan: CXR done after my exam with bilat infiltrates - spoke with pharmacy about my concern in this diabetic pt to cover pseudomonas. Add zosyn and stop rocephin. Keep vancomycin. Code(s): J18.9 - PNEUMONIA, UNSPECIFIED ORGANISM (3) Strep pharyngitis Current Visit: Yes Status: Acute Assessment & Plan: on vanc and zosyn Code(s): J02.0 - STREPTOCOCCAL PHARYNGITIS (4) Diabetes type 2, uncontrolled Current Visit: Yes Status: Chronic Qualifiers: Glycemic state: with hyperglycemia Qualified Code(s): E11.65 - Type 2 diabetes mellitus with hyperglycemia Assessment & Plan: added lantus yesterday Code(s): [id number] - (5) Anemia Current Visit: Yes Status: Chronic Qualifiers: Anemia type: unspecified type Qualified Code(s): D64.9 - Anemia, unspecified Code(s): D64.9 - ANEMIA, UNSPECIFIED (6) Melena Current Visit: Yes Status: Suspected Code(s): K92.1 - MELENA (7) History of breast cancer Current Visit: Yes Status: Chronic Code(s): Z85.3 - PERSONAL HISTORY OF MALIGNANT NEOPLASM OF BREAST
[2022-11-17] MEDS: PIPERACILLIN/TAZOBACTAM 3.375 GM in Sodium Chloride 100ML MINI-BAG PLUS 100 ML IV SCH ×2 (14:18→19:23)
[2022-11-17] MEDS: VANCOMYCIN 1 GRAM/200 ML BAG 1 GM/200 ML PIGGYBACK IV SCH (17:49)
[2022-11-17] MEDS: VANCOCIN INJECTION*** 0.75 GM in Sodium Chloride 0.9% 250 ML 250 ML IV SCH (18:56)
[2022-11-17] MEDS: DIOVAN 80 MG PO SCH (20:56)
[2022-11-18] MEDS: PIPERACILLIN/TAZOBACTAM 3.375 GM in Sodium Chloride 100ML MINI-BAG PLUS 100 ML IV SCH ×5 (02:36→18:23)
[2022-11-18 06:13] LABS: Absolute Neutrophil Ct (ANC) 8.79 x10^3/uL (1.4-6.9); Basophil (Absolute #) 0.05 x10^3/uL (0-0.4); Eosinophil % 1.7 % (0.00-5.0); Eosinophil (Absolute #) 0.19 x10^3/uL (0-0.5); Hematocrit 28.9 % (35-47); Hemoglobin 9.5 g/dL (12.0-16.0); Lymphocyte (Absolute #) 1.55 x10^3/uL (1.0-4.6); Lymphocytes % 13.8 % (24.0-44.0); Mean Cell Volume 89.8 fL (78-100); Mean Corpuscular Hemoglobin 29.5 pg (26-32); Mean Corpuscular Hgb Concent. 32.9 g/dL (32-36); Mean Platelet Volume 10.6 fL (7.5-11.0); Monocyte (Absolute #) 0.41 x10^3/uL (0.0-1.3); Monocytes % 3.7 % (0.0-12.0); Neutrophil % 78.4 % (36.0-66.0); Platelet Count 144 x10^3/uL (150-450); Red Blood Count 3.22 x10^6/uL (4.1-5.4); Red Cell Distribution Width 14.6 % (11.5-14.0); White Blood Count 11.2 x10^3/uL (4.0-10.5)
[2022-11-18] MEDS: VANCOMYCIN 1 GRAM/200 ML BAG 1 GM/200 ML PIGGYBACK IV SCH ×2 (06:33→19:28)
[2022-11-18 06:34] LABS: ANION GAP 7.7 MEQ/L (5-15); BLOOD UREA NITROGEN 13 mg/dL (7-17); CHLORIDE 103 mmol/L (98-107); Calcium 8.3 mg/dL (8.4-10.2); Carbon Dioxide 28 mmol/L (22-30); EST GLOMERULAR FILTRATION RATE > 60.0 ML/MIN; Glucose 241 mg/dL (74-106); Potassium 3.9 mmol/L (3.5-5.1); SODIUM 135 mmol/L (137-145)
[2022-11-18] MEDS: Lantus Insulin SQ SCH (08:11)
[2022-11-18] MEDS: HUMALOG SQ PRN (08:11)
[2022-11-18] MEDS ORDERED: ENOXAPARIN SODIUM SQ SCH (10:00)
[2022-11-18] MEDS: hydroDIURIL 25 MG PO SCH ×2 (10:03→10:10)
--- NOTE | 2022-11-18 11:18 | XRAY ---
Indication: Left upper extremity cellulitis. Abscess. Multiple contiguous axial images obtained through the left forearm to include the elbow/wrist using 80 cc Isovue 370 contrast. Sagittal and coronal reformatted images obtained. Comparison: None Left forearm demonstrates diffuse subcutaneous/subcutaneous soft tissue swelling/induration presumed clinically reported cellulitis. Greatest focus is seen in the proximal forearm. Anterior midforearm demonstrates fluid collection just superficial to the flexor muscles measuring at least 0.8 x 3.4 x 6.8 cm in greatest AP, transverse, and CC projections respectively concerning for abscess. Smaller fluid collection seen tracking along the adjacent flexor carpi radialis muscle measuring 0.5 x 1.0 x 6.8 cm with faint surrounding muscular enhancement concerning for intramuscular abscess. Major arteries and veins are normal in course and caliber. No acute fracture, dislocation, suspicious bony lesions, or osseous destructive process. Impression: Diffuse left forearm cellulitis. Suspicious fluid collections seen midforearm and tracking along flexor carpi radialis muscle as detailed concerning for abscesses.
--- NOTE | 2022-11-18 15:16 | PCM.NOTE ---
Date and Time: 11/18/22 1511 Subjective Assessment: Pt thinks arm is a little better. Afebrile. Kd po. - Review of Systems Constitutional: No Fever Skin: Cellulitis Objective Exam General Appearance: no apparent distress, alert Neurologic Exam: oriented x 3, cooperative Skin Exam: warm, dry, other (LUE decreased erythema. Still edematous with induration distal to elbow. TTP. LE trace pretibial edema bilat), No rash Wound Assessment: Skin/Wound Assessment Wound/Incision Assessment Start: 11/17/22 02:16 Text: Status: Active Freq: Q6H Protocol: Document 11/18/22 08:00 [email or web address] (Rec: 11/18/22 10:10 [email or web address] [id number]) Wound/Incision Assessment Left Upper Arm Wound Assessment Shift Assessment Wound Type cellulitis Wound Stage Non Pressure Wound Drainage Amount None General Appearance Open to air Surrounding Tissue Bright Red Wound Photo Photo Taken No OBJECTIVE DATA Vital Signs: Vital Signs - 24 hr Temp Pulse Resp BP Pulse Ox 11/18/22 12:00 97.1 F 78 19 140/64 98 11/18/22 07:44 96.9 F 73 19 139/62 97 11/18/22 04:00 97.0 F 74 17 121/57 95 11/18/22 00:00 97.1 F 72 16 120/59 94 L 11/17/22 20:00 97.3 F 85 18 132/64 95 11/17/22 15:14 97.7 F 82 16 127/58 95 Pain Assessment - Last Documented Pain Intensity 0 Pain Scale Used 0-10 Pain Scale Intake and Output: Intake & Output 11/16/22 11/17/22 11/18/22 11/19/22 11:59 11:59 11:59 11:59 Intake Total 3485 4220 4195 0 Output Total 3800 Balance 3485 420 4195 0 Weight 62.1 kg 62.6 kg 62.6 kg Lab Results: Lab Results-Last 24 Hours 11/17/22 11/17/22 11/17/22 Range/Units 08:22 16:22 21:41 WBC (4.0-10.5) x10^3/uL RBC (4.1-5.4) x10^6/uL Hgb (12.0-16.0) g/dL Hct (35-47) % MCV (78-100) fL MCH (26-32) pg MCHC (32-36) g/dL RDW (11.5-14.0) % Plt Count (150-450) x10^3/uL MPV (7.5-11.0) fL Gran % (36.0-66.0) % Immature Gran % (Auto) (0.00-0.4) % Nucleat RBC Rel Count (0.00-0.1) % Eos # (Auto) (0-0.5) x10^3/uL Immature Gran # (Auto) (0.00-0.03) x10^3u/L Absolute Lymphs (auto) (1.0-4.6) x10^3/uL Absolute Monos (auto) (0.0-1.3) x10^3/uL Absolute Nucleated RBC (0.00-0.01) x10^3u/L Lymphocytes % (24.0-44.0) % Monocytes % (0.0-12.0) % Eosinophils % (0.00-5.0) % Basophils % (0.0-0.4) % Absolute Granulocytes (1.4-6.9) x10^3/uL Basophils # (0-0.4) x10^3/uL Sodium (137-145) mmol/L Potassium (3.5-5.1) mmol/L Chloride (98-107) mmol/L Carbon Dioxide (22-30) mmol/L Anion Gap (5-15) MEQ/L BUN (7-17) mg/dL Creatinine (0.52-1.04) mg/dL Estimated GFR ML/MIN Glucose (74-106) mg/dL POC Glucometer 263 H 354 H (74 to 106) mg/dL Calcium (8.4-10.2) mg/dL Stool Occult Blood (NEGATIVE) Vancomycin Trough (10-20) ug/mL 11/18/22 11/18/22 11/18/22 Range/Units 05:30 05:30 07:30 WBC 11.2 H (4.0-10.5) x10^3/uL RBC 3.22 L (4.1-5.4) x10^6/uL Hgb 9.5 L (12.0-16.0) g/dL Hct 28.9 L (35-47) % MCV 89.8 (78-100) fL MCH 29.5 (26-32) pg MCHC 32.9 (32-36) g/dL RDW 14.6 H (11.5-14.0) % Plt Count 144 L (150-450) x10^3/uL MPV 10.6 (7.5-11.0) fL Gran % 78.4 H (36.0-66.0) % Immature Gran % (Auto) 2.0 H (0.00-0.4) % Nucleat RBC Rel Count 0.0 (0.00-0.1) % Eos # (Auto) 0.19 (0-0.5) x10^3/uL Immature Gran # (Auto) 0.23 H (0.00-0.03) x10^3u/L Absolute Lymphs (auto) 1.55 (1.0-4.6) x10^3/uL Absolute Monos (auto) 0.41 (0.0-1.3) x10^3/uL Absolute Nucleated RBC 0.00 (0.00-0.01) x10^3u/L Lymphocytes % 13.8 L (24.0-44.0) % Monocytes % 3.7 (0.0-12.0) % Eosinophils % 1.7 (0.00-5.0) % Basophils % 0.4 (0.0-0.4) % Absolute Granulocytes 8.79 H (1.4-6.9) x10^3/uL Basophils # 0.05 (0-0.4) x10^3/uL Sodium 135 L (137-145) mmol/L Potassium 3.9 (3.5-5.1) mmol/L Chloride 103 (98-107) mmol/L Carbon Dioxide 28 (22-30) mmol/L Anion Gap 7.7 (5-15) MEQ/L BUN 13 (7-17) mg/dL Creatinine 0.50 L (0.52-1.04) mg/dL Estimated GFR > 60.0 ML/MIN Glucose 241 H (74-106) mg/dL POC Glucometer 248 H (74 to 106) mg/dL Calcium 8.3 L (8.4-10.2) mg/dL Stool Occult Blood (NEGATIVE) Vancomycin Trough (10-20) ug/mL 11/18/22 11/18/22 Range/Units 07:33 11:28 WBC (4.0-10.5) x10^3/uL RBC (4.1-5.4) x10^6/uL Hgb (12.0-16.0) g/dL Hct (35-47) % MCV (78-100) fL MCH (26-32) pg MCHC (32-36) g/dL RDW (11.5-14.0) % Plt Count (150-450) x10^3/uL MPV (7.5-11.0) fL Gran % (36.0-66.0) % Immature Gran % (Auto) (0.00-0.4) % Nucleat RBC Rel Count (0.00-0.1) % Eos # (Auto) (0-0.5) x10^3/uL Immature Gran # (Auto) (0.00-0.03) x10^3u/L Absolute Lymphs (auto) (1.0-4.6) x10^3/uL Absolute Monos (auto) (0.0-1.3) x10^3/uL Absolute Nucleated RBC (0.00-0.01) x10^3u/L Lymphocytes % (24.0-44.0) % Monocytes % (0.0-12.0) % Eosinophils % (0.00-5.0) % Basophils % (0.0-0.4) % Absolute Granulocytes (1.4-6.9) x10^3/uL Basophils # (0-0.4) x10^3/uL Sodium (137-145) mmol/L Potassium (3.5-5.1) mmol/L Chloride (98-107) mmol/L Carbon Dioxide (22-30) mmol/L Anion Gap (5-15) MEQ/L BUN (7-17) mg/dL Creatinine (0.52-1.04) mg/dL Estimated GFR ML/MIN Glucose (74-106) mg/dL POC Glucometer 188 H (74 to 106) mg/dL Calcium (8.4-10.2) mg/dL Stool Occult Blood NEGATIVE (NEGATIVE) Vancomycin Trough (10-20) ug/mL Radiology Exams: Radiology Procedures Category Date Time Status CHEST 1 VIEW (PORTABLE) Urgent Exams 11/17/22 08:53 Completed UPPER EXTREMITY W CONTRAST [CT] Routine Exams 11/18/22 06:51 Completed Multi-Disciplinary Progress Notes: Multi-Disciplinary Progress Notes 11/18/22 12:56 Case Management Note by Mamat Maldonado S/W PATIENT- SHE CONTINUES TO DENY ANY NEW NEEDS AT TIME OF DC. SHE PLANS TO RETURN HOME TO HER PLF AT TIME OF DC Initialized on 11/18/22 12:56 - END OF NOTE Assessment/Plan (1) Cellulitis of left upper extremity Current Visit: Yes Status: Acute Assessment & Plan: Persistent; day #2 zosyn and day #3 vancomycin - marked edema/induration. CT arm to r/o abscess. Code(s): L03.114 - CELLULITIS OF LEFT UPPER LIMB (2) Bilateral pneumonia Current Visit: Yes Status: Acute Qualifiers: Pneumonia type: due to unspecified organism Assessment & Plan: also decreased fluid to decrease chance of fluid overload. Code(s): J18.9 - PNEUMONIA, UNSPECIFIED ORGANISM (3) Strep pharyngitis Current Visit: Yes Status: Acute Code(s): J02.0 - STREPTOCOCCAL PHARYNGITIS (4) Diabetes type 2, uncontrolled Current Visit: Yes Status: Chronic Qualifiers: Glycemic state: with hyperglycemia Qualified Code(s): E11.65 - Type 2 diabetes mellitus with hyperglycemia Code(s): LTK1690 - (5) Anemia Current Visit: Yes Status: Chronic Qualifiers: Anemia type: unspecified type Qualified Code(s): D64.9 - Anemia, unspecified Assessment & Plan: hgb 9.5 Code(s): D64.9 - ANEMIA, UNSPECIFIED (6) Melena Current Visit: Yes Status: Suspected Assessment & Plan: FiOB ordered Code(s): K92.1 - MELENA (7) History of breast cancer Current Visit: Yes Status: Chronic Code(s): Z85.3 - PERSONAL HISTORY OF MAL IGNANT NEOPLASM OF BREAST
[2022-11-18] MEDS: Sodium Chloride 0.9% W/ 20 mEq KCl/LITER 1,000 ML IV SCH (16:21)
[2022-11-18] MEDS ORDERED: SUBLIMAZE 100 MCG/2 ML ONE (20:19)
[2022-11-18] MEDS ORDERED: Xylocaine-Mpf 2% 5 Ml Vial ONE (20:19)
[2022-11-18] MEDS ORDERED: Versed 2 MG/2 ML Injection ONE (20:19)
[2022-11-18] MEDS ORDERED: DIPRIVAN 200 MG/20 ML IV ONE ×2 (20:19→21:17)
[2022-11-18] MEDS ORDERED: Ketamine HCl 50 MG/ML ONE (20:20)
[2022-11-18] MEDS ORDERED: Sensorcaine 0.25% 10 ML ONE (21:15)
[2022-11-18] MEDS ORDERED: TRANDATE 20 MG/4 ML SYRINGE IV ONE (21:46)
[2022-11-18] MEDS ORDERED: MORPHINE SULFATE 4 MG INJ IV PRN (22:28)
[2022-11-18] MEDS: DIOVAN 80 MG PO SCH (22:30)
[2022-11-18] MEDS: PERCOCET TABLET 5/325MG PO PRN (22:48)
[2022-11-19] MEDS: PIPERACILLIN/TAZOBACTAM 3.375 GM in Sodium Chloride 100ML MINI-BAG PLUS 100 ML IV SCH ×5 (00:06→23:46)
[2022-11-19 06:14] LABS: Absolute Neutrophil Ct (ANC) 6.84 x10^3/uL (1.4-6.9); Basophil (Absolute #) 0.04 x10^3/uL (0-0.4); Eosinophil % 2.1 % (0.00-5.0); Eosinophil (Absolute #) 0.19 x10^3/uL (0-0.5); Hematocrit 30.3 % (35-47); Hemoglobin 9.9 g/dL (12.0-16.0); Lymphocyte (Absolute #) 1.38 x10^3/uL (1.0-4.6); Lymphocytes % 15.2 % (24.0-44.0); Mean Cell Volume 90.7 fL (78-100); Mean Corpuscular Hemoglobin 29.6 pg (26-32); Mean Corpuscular Hgb Concent. 32.7 g/dL (32-36); Mean Platelet Volume 10.3 fL (7.5-11.0); Monocyte (Absolute #) 0.44 x10^3/uL (0.0-1.3); Monocytes % 4.8 % (0.0-12.0); Neutrophil % 75.4 % (36.0-66.0); Platelet Count 160 x10^3/uL (150-450); Red Blood Count 3.34 x10^6/uL (4.1-5.4); Red Cell Distribution Width 15.1 % (11.5-14.0); White Blood Count 9.1 x10^3/uL (4.0-10.5)
[2022-11-19] MEDS: Sodium Chloride 0.9% W/ 20 mEq KCl/LITER 1,000 ML IV SCH ×2 (06:19→23:47)
[2022-11-19] MEDS: VANCOMYCIN 1 GRAM/200 ML BAG 1 GM/200 ML PIGGYBACK IV SCH (06:20)
[2022-11-19 07:01] LABS: ANION GAP 7.9 MEQ/L (5-15); BLOOD UREA NITROGEN 8 mg/dL (7-17); CHLORIDE 101 mmol/L (98-107); Calcium 8.5 mg/dL (8.4-10.2); Carbon Dioxide 29 mmol/L (22-30); Creatinine 1 0.68 mg/dL (0.52-1.04); EST GLOMERULAR FILTRATION RATE > 60.0 ML/MIN; Glucose 149 mg/dL (74-106); Potassium 4.1 mmol/L (3.5-5.1); SODIUM 134 mmol/L (137-145)
[2022-11-19] MEDS: Lantus Insulin SQ SCH (09:04)
[2022-11-19] MEDS: hydroDIURIL 25 MG PO SCH (09:04)
[2022-11-19] MEDS: PERCOCET TABLET 5/325MG PO PRN (15:28)
[2022-11-19] MEDS: HUMALOG SQ PRN ×2 (17:33→21:13)
[2022-11-19] MEDS: DIOVAN 80 MG PO SCH (21:12)
[2022-11-20] MEDS ORDERED: TROUGH DRUG LEVELS IJ ONE (05:30)
[2022-11-20] MEDS: PIPERACILLIN/TAZOBACTAM 3.375 GM in Sodium Chloride 100ML MINI-BAG PLUS 100 ML IV SCH ×4 (06:24→23:25)
[2022-11-20 06:29] LABS: Basophil (Absolute #) 0.02 x10^3/uL (0-0.4); Eosinophil % 1.3 % (0.00-5.0); Eosinophil (Absolute #) 0.09 x10^3/uL (0-0.5); Hematocrit 28.7 % (35-47); Hemoglobin 9.4 g/dL (12.0-16.0); Lymphocyte (Absolute #) 1.35 x10^3/uL (1.0-4.6); Lymphocytes % 18.9 % (24.0-44.0); Mean Cell Volume 91.1 fL (78-100); Mean Corpuscular Hemoglobin 29.8 pg (26-32); Mean Corpuscular Hgb Concent. 32.8 g/dL (32-36); Mean Platelet Volume 10.3 fL (7.5-11.0); Monocyte (Absolute #) 0.38 x10^3/uL (0.0-1.3); Monocytes % 5.3 % (0.0-12.0); Neutrophil % 72.5 % (36.0-66.0); Platelet Count 166 x10^3/uL (150-450); Red Blood Count 3.15 x10^6/uL (4.1-5.4); Red Cell Distribution Width 14.8 % (11.5-14.0); White Blood Count 7.2 x10^3/uL (4.0-10.5)
[2022-11-20 07:02] LABS: ANION GAP 5.7 MEQ/L (5-15); BLOOD UREA NITROGEN 7 mg/dL (7-17); CHLORIDE 104 mmol/L (98-107); Calcium 8.4 mg/dL (8.4-10.2); Carbon Dioxide 30 mmol/L (22-30); Creatinine 1 0.65 mg/dL (0.52-1.04); EST GLOMERULAR FILTRATION RATE > 60.0 ML/MIN; Glucose 195 mg/dL (74-106); Potassium 4.4 mmol/L (3.5-5.1); SODIUM 135 mmol/L (137-145)
[2022-11-20] MEDS: HUMALOG SQ PRN ×4 (07:38→21:22)
[2022-11-20] MEDS: Lantus Insulin SQ SCH (07:39)
[2022-11-20] MEDS: hydroDIURIL 25 MG PO SCH (10:53)
[2022-11-20] MEDS: Sodium Chloride 0.9% W/ 20 mEq KCl/LITER 1,000 ML IV SCH ×2 (17:00→19:25)
[2022-11-20] MEDS: DIOVAN 80 MG PO SCH (21:22)
[2022-11-21 05:32] LABS: Hematocrit 27.4 % (35-47); Hemoglobin 9.1 g/dL (12.0-16.0); Mean Cell Volume 90.1 fL (78-100); Mean Corpuscular Hemoglobin 29.9 pg (26-32); Mean Corpuscular Hgb Concent. 33.2 g/dL (32-36); Mean Platelet Volume 10.1 fL (7.5-11.0); Platelet Count 166 x10^3/uL (150-450); Red Blood Count 3.04 x10^6/uL (4.1-5.4); Red Cell Distribution Width 14.8 % (11.5-14.0); White Blood Count 6.6 x10^3/uL (4.0-10.5)
[2022-11-21 06:03] LABS: ANION GAP 5.7 MEQ/L (5-15); BLOOD UREA NITROGEN 8 mg/dL (7-17); CHLORIDE 104 mmol/L (98-107); Calcium 8.1 mg/dL (8.4-10.2); Carbon Dioxide 29 mmol/L (22-30); Creatinine 1 0.65 mg/dL (0.52-1.04); EST GLOMERULAR FILTRATION RATE > 60.0 ML/MIN; Glucose 182 mg/dL (74-106); Potassium 3.9 mmol/L (3.5-5.1); SODIUM 135 mmol/L (137-145)
[2022-11-21] MEDS: PIPERACILLIN/TAZOBACTAM 3.375 GM in Sodium Chloride 100ML MINI-BAG PLUS 100 ML IV SCH ×4 (06:21→23:25)
--- NOTE | 2022-11-21 07:58 | CONS ---
CONSULT DATE: 11/18/2022 HISTORY: A 67-year-old had some cellulitis on her arms, developed an indurated area that was swollen on her forearm and question whether she had infection or abscess there. She had suspicious fluid from the mid forearm that is concerning for abscess. PAST MEDICAL/SURGICAL HISTORY: She said she had lymph nodes removed from that axilla years ago so it is a little more prone to swelling. She has had cellulitis. She denies any injury, bug bite or puncture or anything there. Diabetes, hypertension. She has history of breast cancer in the past, had some breast surgery and mastectomy. Lymph nodes removed from axilla. She had varicose veins in the past. She denied any surgery on the forearm itself. MEDICATIONS: Home medications glimepiride, hydrochlorothiazide, Metformin, valsartan. She is on IV antibiotics here otherwise medications reviewed per the JAN. ALLERGIES: NKDA. FAMILY HISTORY: Negative in regards to this problem. SOCIAL HISTORY: No smoking. REVIEW OF SYSTEMS: Fourteen systems reviewed per admission assessment. No chest pain or palpitations other systems negative or noncontributory as above and per preadmission questionnaire. PHYSICAL EXAMINATION: GENERAL: No acute distress. HEENT: Sclera nonicteric. NECK: No JVD. CHEST: Equal excursion, nonlabored breathing. CVS: Regular rhythm and pulse. ABDOMEN: Soft. EXTREMITIES: Pertinent for left upper extremity. She has got a little bit of swelling in the entire extremity but she has focal induration, redness, raised area consistent with question of abscess as noted on her prior study reviewed by the radiologist. NEURO: Alert, oriented. PSYCH: Appropriate mood and affect. LAB DATA AND TESTS: I feel she would benefit from drainage of this area. Her white count was 23,[address] scan was reviewed and report reviewed. IMPRESSION: Left forearm cellulitis and induration. CT suggested a possible abscess. I feel the patient will benefit from drainage, possible debridement. General risk of bleeding or infection, risk of ongoing infection possibly requiring other procedures, general risk of anesthesia, deep vein thrombosis but not limited to, aches and pains. She will need packing afterwards. Consent obtained. Will proceed when OR time is available.
[2022-11-21] MEDS: HUMALOG SQ PRN ×3 (08:11→22:35)
[2022-11-21] MEDS: Lantus Insulin SQ SCH (08:13)
--- NOTE | 2022-11-21 08:36 | OP ---
SURGERY DATE/TIME: 11/18/20222056 PREOPERATIVE DIAGNOSIS: Prior history of breast cancer, history of arm swelling and cellulitis and induration of the forearm, concern for possible abscess. POSTOPERATIVE DIAGNOSIS: Left forearm cellulitis and abscess subfascial extending along the muscle planes. PROCEDURE: Drainage, extensive irrigation, culture and packing left forearm abscess. SURGEON: Dr. Karan Miller. ANESTHESIA: MAC, 1% lidocaine local. ESTIMATED BLOOD LOSS: Minimal. INDICATIONS: As noted above. Risks and benefits explained in detail and not limited to and consent obtained. The site is confirmed with the patient in the preoperative holding area. DESCRIPTION OF PROCEDURE AND FINDINGS: The patient is taken to the operating room. She is prepped and draped in the usual sterile fashion. After MAC anesthesia, 1% lidocaine was infiltrated in field pattern around the area. A nickel size opening was made to allow for adequate drainage and packing. Initially dissection carried down just below the subfascial plane. A large seropurulent collection extending along up and down the forearm the subfascial plane. Copious amount of irrigation accomplished. Culture is taken. Hemostat was gently placed in open space cephalad, another opening was opened to allow for a little better drainage and irrigating out. Irrigation was irrigated clear through the secondary hole. Copious amount of irrigation irrigated. The wounds were then packed. Adequate hemostasis noted. The wounds were then packed. Careful compression performed to rule out any other purulent pocket. She did have some edema. The wounds were packed with Iodoform packing, sterile dressing applied. There were no immediate complications. Findings discussed with the family in the waiting area.
[2022-11-21] MEDS: Sodium Chloride 0.9% W/ 20 mEq KCl/LITER 1,000 ML IV SCH ×2 (09:38→23:25)
[2022-11-21] MEDS: Acidophilus TABLET PO SCH ×3 (09:39→22:34)
[2022-11-21] MEDS: hydroDIURIL 25 MG PO SCH (09:39)
[2022-11-21 11:07] LABS: 027 TOX PROD PRESUMPTIVE NEGATIVE (NEGATIVE); TOXIGENIC C. DIFF ORG NEGATIVE (NEGATIVE)
--- NOTE | 2022-11-21 17:17 | PCM.NOTE ---
Date and Time: 11/21/22 1712 Subjective Assessment: Pt's arm feeling much better, does have some burning currently but overall denies pain. Kd po well. - Review of Systems Constitutional: No Fever Abdominal/Gastrointestinal: No Vomiting Objective Exam General Appearance: no apparent distress, alert Neurologic Exam: oriented x 3, cooperative Skin Exam: warm, dry, other (LUE approx 14x6 cm area of induration medial forearm without erythema. Two areas have packing present.), No rash Wound Assessment: Skin/Wound Assessment Wound/Incision Assessment Start: 11/17/22 02:16 Text: Status: Active Freq: Q6H Protocol: Document 11/21/22 14:00 (Rec: 11/21/22 14:08 [id number]) Wound/Incision Assessment Left Upper Arm Wound Assessment Shift Assessment Wound Type cellulitis post debridement Dressing Status Changed Drainage Amount Minimal Drainage Description Yellow Drainage Odor None/Absent General Appearance Unapproximated Surrounding Tissue Bright Red,Edematous Topical Solution/Irrigant Saline Irrigant Packing Type Gauze Packing Strips Primary Dressing Gauze Pads Secondary Dressing Gauze Roll/Wrap Eye Exam: eyes nml inspection Ears, Nose, Throat Exam: moist mucous membranes Neck Exam: normal inspection Respiratory Exam: normal breath sounds, lungs clear, No crackles/rales, No rhonchi, No wheezing Cardiovascular Exam: regular rate/rhythm, normal heart sounds, No murmur Gastrointestinal/Abdomen Exam: soft, normal bowel sounds, No tenderness, No distention, No mass, No guarding, No rebound Extremity Exam: other (LE nl) OBJECTIVE DATA Vital Signs: Vital Signs - 24 hr Temp Pulse Resp BP Pulse Ox 11/21/22 15:00 97.7 F 73 16 167/72 96 11/21/22 11:00 97.6 F 66 16 155/65 97 11/21/22 07:00 97.5 F 68 16 148/70 96 11/21/22 03:00 97.5 F 71 18 134/61 96 11/20/22 23:00 96.9 F 69 17 134/68 96 11/20/22 19:00 97.1 F 78 17 145/66 96 Pain Assessment - Last Documented Pain Intensity 0 Pain Scale Used FLACC Intake and Output: Intake & Output 11/19/22 11/20/22 11/21/22 11/22/22 11:59 11:59 11:59 11:59 Intake Total 0940 6386 7311 809 Output Total 1 Balance 9985 7716 6729 356 Weight 61.2 kg 61.5 kg Lab Results: Lab Results-Last 24 Hours 11/20/22 11/21/22 11/21/22 Range/Units 20:46 05:26 05:26 WBC 6.6 (4.0-10.5) x10^3/uL RBC 3.04 L (4.1-5.4) x10^6/uL Hgb 9.1 L (12.0-16.0) g/dL Hct 27.4 L (35-47) % MCV 90.1 (78-100) fL MCH 29.9 (26-32) pg MCHC 33.2 (32-36) g/dL RDW 14.8 H (11.5-14.0) % Plt Count 166 (150-450) x10^3/uL MPV 10.1 (7.5-11.0) fL Sodium 135 L (137-145) mmol/L Potassium 3.9 (3.5-5.1) mmol/L Chloride 104 (98-107) mmol/L Carbon Dioxide 29 (22-30) mmol/L Anion Gap 5.7 (5-15) MEQ/L BUN 8 (7-17) mg/dL Creatinine 0.65 (0.52-1.04) mg/dL Estimated GFR > 60.0 ML/MIN Glucose 182 H (74-106) mg/dL POC Glucometer 326 H (74 to 106) mg/dL Calcium 8.1 L (8.4-10.2) mg/dL C. difficile Screen (NEGATIVE) C.difficile 027-NAP1-B1 (NEGATIVE) 11/21/22 11/21/22 11/21/22 Range/Units 07:08 11:18 17:07 WBC (4.0-10.5) x10^3/uL RBC (4.1-5.4) x10^6/uL Hgb (12.0-16.0) g/dL Hct (35-47) % MCV (78-100) fL MCH (26-32) pg MCHC (32-36) g/dL RDW (11.5-14.0) % Plt Count (150-450) x10^3/uL MPV (7.5-11.0) fL Sodium (137-145) mmol/L Potassium (3.5-5.1) mmol/L Chloride (98-107) mmol/L Carbon Dioxide (22-30) mmol/L Anion Gap (5-15) MEQ/L BUN (7-17) mg/dL Creatinine (0.52-1.04) mg/dL Estimated GFR ML/MIN Glucose (74-106) mg/dL POC Glucometer 166 H 174 H 196 H (74 to 106) mg/dL Calcium (8.4-10.2) mg/dL C. difficile Screen (NEGATIVE) C.difficile 027-NAP1-B1 (NEGATIVE) 11/21/22 Range/Units Unknown WBC (4.0-10.5) x10^3/uL RBC (4.1-5.4) x10^6/uL Hgb (12.0-16.0) g/dL Hct (35-47) % MCV (78-100) fL MCH (26-32) pg MCHC (32-36) g/dL RDW (11.5-14.0) % Plt Count (150-450) x10^3/uL MPV (7.5-11.0) fL Sodium (137-145) mmol/L Potassium (3.5-5.1) mmol/L Chloride (98-107) mmol/L Carbon Dioxide (22-30) mmol/L Anion Gap (5-15) MEQ/L BUN (7-17) mg/dL Creatinine (0.52-1.04) mg/dL Estimated GFR ML/MIN Glucose (74-106) mg/dL POC Glucometer (74 to 106) mg/dL Calcium (8.4-10.2) mg/dL C. difficile Screen NEGATIVE (NEGATIVE) C.difficile 027-NAP1-B1 PRESUMPTIVE NEGATIVE (NEGATIVE) Multi-Disciplinary Progress Notes: Multi-Disciplinary Progress Notes 11/21/22 14:35 Case Management Note by Mamta Maldonado S/W PATIENT ABOUT NEEDS AT AL. SHE WOULD LIKE TO COME INTO OTPT DEPARTMENT FOR DRESSING CHANGES. SHE REPORTS SHE WILL HAVE TRANSPORTATION FOR THAT. SHE DENIES ANY OTHER NEEDS. Initialized on 11/21/22 14:35 - END OF NOTE Assessment/Plan (1) Cellulitis of left upper extremity Current Visit: Yes Status: Acute Assessment & Plan: S/p I&D, POD #3. Doing well on zosyn. Her wound cx is pending, Gram + but ID/sensitivity pending. When it's back, likely able to d/c to home on po antibiotics if susceptible. Will follow surgery's lead. Code(s): L03.114 - CELLULITIS OF LEFT UPPER LIMB (2) Bilateral pneumonia Current Visit: Yes Status: Acute Qualifiers: Pneumonia type: due to unspecified organism Code(s): J18.9 - PNEUMONIA, UNSPECIFIED ORGANISM (3) Strep pharyngitis Current Visit: Yes Status: Acute Code(s): J02.0 - STREPTOCOCCAL PHARYNGITIS (4) Diabetes type 2, uncontrolled Current Visit: Yes Status: Chronic Qualifiers: Glycemic state: with hyperglycemia Qualified Code(s): E11.65 - Type 2 diabetes mellitus with hyperglycemia Code(s): PTP1904 - (5) Anemia Current Visit: Yes Status: Chronic Qualifiers: Anemia type: unspecified type Qualified Code(s): D64.9 - Anemia, unspecified Code(s): D64.9 - ANEMIA, UNSPECIFIED (6) Melena Current Visit: Yes Status: Suspected Code(s): K92.1 - MELENA (7) History of breast cancer Current Visit: Yes Status: Chronic Code(s): Z85.3 - PERSONAL HISTORY OF MALIGNANT NEOPLASM OF BREAST
[2022-11-21] MEDS: DIOVAN 80 MG PO SCH (22:34)
[2022-11-22] MEDS: PIPERACILLIN/TAZOBACTAM 3.375 GM in Sodium Chloride 100ML MINI-BAG PLUS 100 ML IV SCH ×2 (05:18→12:14)
[2022-11-22 05:52] LABS: Absolute Neutrophil Ct (ANC) 3.93 x10^3/uL (1.4-6.9); Basophil (Absolute #) 0.02 x10^3/uL (0-0.4); Eosinophil % 2.2 % (0.00-5.0); Eosinophil (Absolute #) 0.13 x10^3/uL (0-0.5); Hematocrit 29.5 % (35-47); Hemoglobin 9.4 g/dL (12.0-16.0); Lymphocyte (Absolute #) 1.48 x10^3/uL (1.0-4.6); Lymphocytes % 24.5 % (24.0-44.0); Mean Cell Volume 93.4 fL (78-100); Mean Corpuscular Hemoglobin 29.7 pg (26-32); Mean Corpuscular Hgb Concent. 31.9 g/dL (32-36); Mean Platelet Volume 10.2 fL (7.5-11.0); Monocyte (Absolute #) 0.42 x10^3/uL (0.0-1.3); Neutrophil % 65.2 % (36.0-66.0); Platelet Count 161 x10^3/uL (150-450); Red Blood Count 3.16 x10^6/uL (4.1-5.4); Red Cell Distribution Width 14.9 % (11.5-14.0)
[2022-11-22 06:58] LABS: ANION GAP 7.5 MEQ/L (5-15); BLOOD UREA NITROGEN 7 mg/dL (7-17); CHLORIDE 105 mmol/L (98-107); Calcium 8.7 mg/dL (8.4-10.2); Carbon Dioxide 30 mmol/L (22-30); Creatinine 1 0.75 mg/dL (0.52-1.04); EST GLOMERULAR FILTRATION RATE > 60.0 ML/MIN; Glucose 160 mg/dL (74-106); Potassium 4.8 mmol/L (3.5-5.1); SODIUM 138 mmol/L (137-145)
[2022-11-22] MEDS: Lantus Insulin SQ SCH (08:31)
[2022-11-22] MEDS: hydroDIURIL 25 MG PO SCH (08:33)
[2022-11-22] MEDS: Acidophilus TABLET PO SCH (08:33)
--- NOTE | 2022-11-22 10:17 | PCM.DS ---
Discharge Summary Date of Admission: 11/16/22 11:46 Admitting Physician: JENNIFER MARSHALL Consults: Consults on Case 11/18/22 11:26 Consult Surgery ROUTINE Primary Care Provider: DAPHNE GUERRA Allergies Allergies No Known Drug Allergies Allergy (Verified 11/15/22 10:18) Hospital Summary - Hospital Course Hospital Course: Pt is 67 yo female with DM uncontrolled and hx breast ca was admitted through ER with LUE cellulitis and strep pharyngitis. U/S of UE without abscess. Was placed on IV vancomycin and rocephin and after 2 days arm not noticeably imiproved; CT showed likely abscess at that time so surgery did I&D, left packing, and did wound culture. She has been on IV zosyn since then. Her ID and sensitivity came back today, Strep pyogenes presumed sensitive to penicillins so she will be discharged to home on augmentin. F/u with surgery. Dressing changes as directed by surgery. During her stay she was found to have rhonchi and had bilat lower lobe pna. She complained of possible melena but occult blood in stool was negative. She had anemia during her stay, stable around 9.5. Pt denying pain this morning. Has been using the arm more. Kd po very well. - Vitals & Intake/Output Vital Signs: Vital Signs Temperature 97.0 F 11/22/22 07:00 Pulse Rate 66 11/22/22 07:00 Respiratory Rate 17 11/22/22 07:00 Blood Pressure 156/65 11/22/22 07:00 O2 Sat by Pulse Oximetry 95 11/22/22 07:00 Intake & Output: Intake & Output 11/19/22 11/20/22 11/21/22 11/22/22 11:59 11:59 11:59 11:59 Intake Total 1544 4764 3712 4209 Output Total 1 800 Balance 1544 4764 3711 1699 Weight 61.2 kg 61.5 kg - Lab Result Diagrams: 11/22/22 05:10 11/22/22 05:10 Lab Results-Last 24 Hrs: Lab Results-Last 24 Hours 11/21/22 11/21/22 11/21/22 Range/Units 11:18 17:07 21:20 WBC (4.0-10.5) x10^3/uL RBC (4.1-5.4) x10^6/uL Hgb (12.0-16.0) g/dL Hct (35-47) % MCV (78-100) fL MCH (26-32) pg MCHC (32-36) g/dL RDW (11.5-14.0) % Plt Count (150-450) x10^3/uL MPV (7.5-11.0) fL Gran % (36.0-66.0) % Immature Gran % (Auto) (0.00-0.4) % Nucleat RBC Rel Count (0.00-0.1) % Eos # (Auto) (0-0.5) x10^3/uL Immature Gran # (Auto) (0.00-0.03) x10^3u/L Absolute Lymphs (auto) (1.0-4.6) x10^3/uL Absolute Monos (auto) (0.0-1.3) x10^3/uL Absolute Nucleated RBC (0.00-0.01) x10^3u/L Lymphocytes % (24.0-44.0) % Monocytes % (0.0-12.0) % Eosinophils % (0.00-5.0) % Basophils % (0.0-0.4) % Absolute Granulocytes (1.4-6.9) x10^3/uL Basophils # (0-0.4) x10^3/uL Sodium (137-145) mmol/L Potassium (3.5-5.1) mmol/L Chloride (98-107) mmol/L Carbon Dioxide (22-30) mmol/L Anion Gap (5-15) MEQ/L BUN (7-17) mg/dL Creatinine (0.52-1.04) mg/dL Estimated GFR ML/MIN Glucose (74-106) mg/dL POC Glucometer 174 H 196 H 343 H (74 to 106) mg/dL Calcium (8.4-10.2) mg/dL C. difficile Screen (NEGATIVE) C.difficile 027-NAP1-B1 (NEGATIVE) 11/21/22 11/22/22 11/22/22 Range/Units Unknown 05:10 05:10 WBC 6.0 (4.0-10.5) x10^3/uL RBC 3.16 L (4.1-5.4) x10^6/uL Hgb 9.4 L (12.0-16.0) g/dL Hct 29.5 L (35-47) % MCV 93.4 (78-100) fL MCH 29.7 (26-32) pg MCHC 31.9 L (32-36) g/dL RDW 14.9 H (11.5-14.0) % Plt Count 161 (150-450) x10^3/uL MPV 10.2 (7.5-11.0) fL Gran % 65.2 (36.0-66.0) % Immature Gran % (Auto) 0.8 H (0.00-0.4) % Nucleat RBC Rel Count 0.0 (0.00-0.1) % Eos # (Auto) 0.13 (0-0.5) x10^3/uL Immature Gran # (Auto) 0.05 H (0.00-0.03) x10^3u/L Absolute Lymphs (auto) 1.48 (1.0-4.6) x10^3/uL Absolute Monos (auto) 0.42 (0.0-1.3) x10^3/uL Absolute Nucleated RBC 0.00 (0.00-0.01) x10^3u/L Lymphocytes % 24.5 (24.0-44.0) % Monocytes % 7.0 (0.0-12.0) % Eosinophils % 2.2 (0.00-5.0) % Basophils % 0.3 (0.0-0.4) % Absolute Granulocytes 3.93 (1.4-6.9) x10^3/uL Basophils # 0.02 (0-0.4) x10^3/uL Sodium 138 (137-145) mmol/L Potassium 4.8 D (3.5-5.1) mmol/L Chloride 105 (98-107) mmol/L Carbon Dioxide 30 (22-30) mmol/L Anion Gap 7.5 (5-15) MEQ/L BUN 7 (7-17) mg/dL Creatinine 0.75 (0.52-1.04) mg/dL Estimated GFR > 60.0 ML/MIN Glucose 160 H (74-106) mg/dL POC Glucometer (74 to 106) mg/dL Calcium 8.7 (8.4-10.2) mg/dL C. difficile Screen NEGATIVE (NEGATIVE) C.difficile 027-NAP1-B1 PRESUMPTIVE NEGATIVE (NEGATIVE) 11/22/22 Range/Units 07:09 WBC (4.0-10.5) x10^3/uL RBC (4.1-5.4) x10^6/uL Hgb (12.0-16.0) g/dL Hct (35-47) % MCV (78-100) fL MCH (26-32) pg MCHC (32-36) g/dL RDW (11.5-14.0) % Plt Count (150-450) x10^3/uL MPV (7.5-11.0) fL Gran % (36.0-66.0) % Immature Gran % (Auto) (0.00-0.4) % Nucleat RBC Rel Count (0.00-0.1) % Eos # (Auto) (0-0.5) x10^3/uL Immature Gran # (Auto) (0.00-0.03) x10^3u/L Absolute Lymphs (auto) (1.0-4.6) x10^3/uL Absolute Monos (auto) (0.0-1.3) x10^3/uL Absolute Nucleated RBC (0.00-0.01) x10^3u/L Lymphocytes % (24.0-44.0) % Monocytes % (0.0-12.0) % Eosinophils % (0.00-5.0) % Basophils % (0.0-0.4) % Absolute Granulocytes (1.4-6.9) x10^3/uL Basophils # (0-0.4) x10^3/uL Sodium (137-145) mmol/L Potassium (3.5-5.1) mmol/L Chloride (98-107) mmol/L Carbon Dioxide (22-30) mmol/L Anion Gap (5-15) MEQ/L BUN (7-17) mg/dL Creatinine (0.52-1.04) mg/dL Estimated GFR ML/MIN Glucose (74-106) mg/dL POC Glucometer 164 H (74 to 106) mg/dL Calcium (8.4-10.2) mg/dL C. difficile Screen (NEGATIVE) C.difficile 027-NAP1-B1 (NEGATIVE) Micro Results-Entire Visit: Microbiology 11/18/22 21:20 Wound Culture - Final Arm - Left Lower Streptococcus Pyogenes 11/15/22 10:35 Blood Culture Gram Stain - Final Blood Not Reportable Blood Culture - Final NO GROWTH 11/15/22 10:21 Blood Culture Gram Stain - Final Blood Not Reportable Blood Culture - Final NO GROWTH 11/15/22 22:39 Urine Culture - Final Urine, Void NO GROWTH Accuchecks Date 11/22/22 Date 11/21/22 Date 11/21/22 Date 11/21/22 Time 07:38 Time 17:21 Time 12:06 - Procedures and Test Procedures and Tests throughout Hospitalization: Therapy Orders & Screens 11/17/22 08:53 Incentive Spirometry TID Comment: Diagnosis: CELLULITIS LUE, STREP PHARYNGITIS 11/17/22 14:39 Respiratory Therapy Assessment DAILY Comment: Diagnosis: CELLULITIS LUE, STREP PHARYNGITIS Discharge Exam General Appearance: no apparent distress, alert Neurologic Exam: oriented x 3, cooperative Eye Exam: eyes nml inspection Ears, Nose, Throat Exam: moist mucous membranes Neck Exam: normal inspection Respiratory Exam: normal breath sounds, lungs clear, No crackles/rales, No rhonchi, No wheezing Cardiovascular Exam: regular rate/rhythm, normal heart sounds, No murmur Extremity Exam: other (LUE wrapped at midpoint of forearm; otherwise skin is soft, not erythematous, no induration, nttp) Wound Assessment: Skin/Wound Assessment Wound/Incision Assessment Start: 11/17/22 02:16 Text: Status: Active Freq: Q6H Protocol: Document 11/22/22 08:00 RB (Rec: 11/22/22 08:38 RB [id number]) Wound/Incision Assessment Left Upper Arm Wound Assessment Shift Assessment Wound Type cellulitis post debridement Dressing Status Changed Drainage Amount Minimal Drainage Description Yellow Drainage Odor None/Absent General Appearance Unapproximated Surrounding Tissue Bright Red,Edematous Topical Solution/Irrigant Saline Irrigant Packing Type Gauze Packing Strips Primary Dressing Gauze Pads Secondary Dressing Gauze Roll/Wrap Wound Photo Photo Taken No Final Diagnosis/Problem List - Final Discharge Diagnosis/Problem (1) Cellulitis of left upper extremity Current Visit: Yes Status: Acute Assessment & Plan: muchimproved. home on augmentin. Code(s): L03.114 - CELLULITIS OF LEFT UPPER LIMB (2) Bilateral pneumonia Current Visit: Yes Status: Resolved Code(s): J18.9 - PNEUMONIA, UNSPECIFIED ORGANISM (3) Strep pharyngitis Current Visit: Yes Status: Resolved Code(s): J02.0 - STREPTOCOCCAL PHARYNGITIS (4) Diabetes type 2, uncontrolled Current Visit: Yes Status: Chronic Code(s): WGV8776 - (5) Anemia Current Visit: Yes Status: Chronic Code(s): D64.9 - ANEMIA, UNSPECIFIED (6) Melena Current Visit: Yes Status: Ruled-out Code(s): K92.1 - MELENA (7) History of breast cancer Current Visit: Yes Status: Chronic Code(s): Z85.3 - PERSONAL HISTORY OF MALIGNANT NEOPLASM OF BREAST - Discharge Disposition: Home, Self-Care Condition: Good Prescriptions: New Lactobacillus Acidophilus [Acidophilus TABLET] 1 tab PO TID tablet Amox Tr/Potass Clav. 875 mg [Augmentin 875-125 Tablet] 875 mg PO BID #20 tablet Continue Valsartan 160 mg PO HS Hydrochlorothiazide 25 mg [hydroDIURIL 25 MG] 25 mg PO DAILY Metformin HCl [Metformin ER Gastric] 1,000 mg PO BID Glimepiride 4 mg [Amaryl 4 mg] 4 mg PO DAILY Follow up with: DAPHNE GUERRA [Primary Care Provider] -
[2022-11-22 11:47] VITALS: BP 148/64; PULSE 70; O2SAT 96
== END 2022-11-22 13:59 | disposition home or self-care (01) | DRG 602 ==
LOC: ED 10:02 → MED SURG 12:47 → OBSVTOIN 11-16 11:46
PROVIDERS: ADMIT Family Medicine; ATTEND Family Medicine
PROC: 0J9H0ZZ Drainage of Left Lower Arm Subcutaneous Tissue and Fascia, Open Approach (ICD-10-PCS; principal; 2022-11-18)
DX: L03.114 Cellulitis of left upper limb (principal); J18.9 Pneumonia, unspecified organism; K92.1 Melena; J02.0 Streptococcal pharyngitis; E11.65 Type 2 diabetes mellitus with hyperglycemia; D64.9 Anemia, unspecified; D72.829 Elevated white blood cell count, unspecified; Z85.3 Personal history of malignant neoplasm of breast; Z79.899 Other long term (current) drug therapy; Z20.828 Contact with and (suspected) exposure to other viral communicable diseases; Z90.13 Acquired absence of bilateral breasts and nipples
CPT/HCPCS: 01810; 0241U; 10061; 36000; 36415; 71045; 73201; 80048; 80053; 80202; 81015; 82607; 82728; 82746; 82947; 83036; 83540; 83550; 83605; 84550; 85025; 85027; 85652; 87040; 87070; 87077; 87086; 87493; 87651; 93268; 93971; 96360; 96365; 96367; 96374; 96375; 99140; 99285; G0328; G0378; 82274; 88305; J0696; J1170; J1650; J1817; J2250; J2405; J2704; J3010; J3370; A9270-GY

== ENCOUNTER 2025-09-02 06:13 | Day surgery (SDC) | payer MEDICARE, OTHER ==
[2025-09-02] MEDS ORDERED: TETRACAINE 0.5% STERI-UNIT SOL OP ONE (06:30)
[2025-09-02] MEDS: TETRACAINE 0.5% STERI-UNIT SOL OP ONE (06:38)
[2025-09-02] MEDS: Ak-Dilate OPHTHALMIC*** 0.71 ML, Cyclogyl 1% OPHTH SOL 0.71 ML, GATIFLOXACIN 0.5% OPHTH... OP SCH (06:42)
[2025-09-02 06:51] LABS: Calcium 9.6 mg/dL (8.4-10.2); Carbon Dioxide 27.0 mmol/L (22-30); Creatinine 1 0.95 mg/dL (0.52-1.04); EST GLOMERULAR FILTRATION RATE 64.1 ML/MIN; Glucose 127.0 mg/dL (74-106); Potassium 4.2 mmol/L (3.5-5.1)
[2025-09-02] MEDS ORDERED: propofoL IV ONE (07:42)
[2025-09-02 08:10] VITALS: RESP 18
[2025-09-02] MEDS: ACETAZOLAMIDE 250 MG TABLET PO ONE (08:14)
[2025-09-02 08:19] VITALS: BP 143/62; PULSE 62; TEMP 97.7; O2SAT 96
[2025-09-02] MEDS ORDERED: DEXMEDETOMIDINE 80 MCG/20ML-NS IV NR (08:30)
[2025-09-02] MEDS ORDERED: OMIDRIA 1-0.3% VIAL IO NR (08:30)
[2025-09-02] MEDS ORDERED: VIGAMOX/BSS 0.15% SYR IO NR (08:30)
[2025-09-02] MEDS ORDERED: BETADINE 5% OPHTHALMIC 30 ML OP NR (08:30)
[2025-09-02] MEDS ORDERED: DEXTENZA OP NR (08:30)
[2025-09-02] MEDS ORDERED: TRIAMCINOLONE 15 MG/ML INJ INTRAOP NR (08:30)
[2025-09-02] MEDS ORDERED: Zofran 4 MG/2 ML VIAL IV PRN (08:30)
== END 2025-09-02 08:32 | disposition home or self-care (01) ==
LOC: SDC 06:13
PROVIDERS: ATTEND Ophthalmology
DX: H25.811 Combined forms of age-related cataract, right eye (principal); I10 Essential (primary) hypertension

== ENCOUNTER 2025-09-30 06:03 | Day surgery (SDC) | payer MEDICARE, OTHER ==
[2025-09-30] MEDS: TETRACAINE 0.5% STERI-UNIT SOL OP ONE ×2 (06:19)
[2025-09-30] MEDS: Ak-Dilate OPHTHALMIC*** 0.71 ML, Cyclogyl 1% OPHTH SOL 0.71 ML, GATIFLOXACIN 0.5% OPHTH... OP SCH (06:20)
[2025-09-30 06:38] LABS: Calcium 9.8 mg/dL (8.4-10.2); Carbon Dioxide 24.0 mmol/L (22-30); Creatinine 1 1.07 mg/dL (0.52-1.04); EST GLOMERULAR FILTRATION RATE 55.5 ML/MIN; Glucose 119.0 mg/dL (74-106); Potassium 4.4 mmol/L (3.5-5.1)
[2025-09-30] MEDS ORDERED: Lactated Ringers 1,000 ML IV SCH (08:00)
[2025-09-30] MEDS ORDERED: propofoL IV ONE ×2 (08:30→08:42)
[2025-09-30] MEDS ORDERED: PHENYLEPHRINE HCL ONE (08:40)
[2025-09-30 09:00] VITALS: RESP 16
[2025-09-30] MEDS: ACETAZOLAMIDE 250 MG TABLET PO ONE (09:02)
[2025-09-30 09:05] VITALS: PULSE 65
[2025-09-30 09:13] VITALS: BP 125/59; TEMP 97.7; O2SAT 96
[2025-09-30] MEDS ORDERED: DEXTENZA OP NR (10:00)
[2025-09-30] MEDS ORDERED: DEXMEDETOMIDINE 80 MCG/20ML-NS IV NR (10:00)
[2025-09-30] MEDS ORDERED: OMIDRIA 1-0.3% VIAL IO NR (10:00)
[2025-09-30] MEDS ORDERED: VIGAMOX/BSS 0.15% SYR IO NR (10:00)
[2025-09-30] MEDS ORDERED: BETADINE 5% OPHTHALMIC 30 ML OP NR (10:00)
[2025-09-30] MEDS ORDERED: Zofran 4 MG/2 ML VIAL IV PRN (10:00)
[2025-09-30] MEDS ORDERED: TRIAMCINOLONE 15 MG/ML INJ INTRAOP NR (10:00)
== END 2025-09-30 09:21 | disposition home or self-care (01) ==
LOC: SDC 06:03
PROVIDERS: ATTEND Ophthalmology
DX: H25.812 Combined forms of age-related cataract, left eye (principal); E11.9 Type 2 diabetes mellitus without complications; I10 Essential (primary) hypertension